=== PATIENT | male | born 1945 | race Caucasian/White ===

== ENCOUNTER → 2017-08-23 | Outpatient (CLI) | payer MEDICARE ==
[~2017-08-23] MED LIST: LIDOCAINE WITH 8.4% SOD BICARB 3 ML DISP.SYRIN.; MIDAZOLAM HCL/PF 5 MG/5 ML VIAL.; fentaNYL PF VIAL 100 MCG/2 ML VIAL
[2017-08-23 08:17] LABS: BASO % 1 % (0-3); EOS % 0 % (0-3); HEMATOCRIT 36.4 % (39.0-53.0); HEMOGLOBIN 11.3 g/dL (13.0-17.5); LYMPH # 1.1 x10^3/uL (1.0-4.8); LYMPH % 62 % (24-48); MEAN CORPUSCULAR HEMOGLOBIN 29 pg (25-35); MEAN CORPUSCULAR HGB CONC 31 g/dL (31-37); MEAN CORPUSCULAR VOLUME 93 fL (79-100); MONO # 0.2 x10^3/uL (0.0-1.1); MONO % 10 % (0-9); NEUT # 0.5 x10^3uL (1.8-7.7); NEUT % 27 % (31-73); RED BLOOD COUNT 3.94 x10^6/uL (4.30-5.70); RED CELL DISTRIBUTION WIDTH 17.6 % (11.5-14.5)
[2017-08-23 08:26] LABS: ADD MAN DIFF? YES; PLATELET COUNT 19 x10^3/uL (140-400); WHITE BLOOD COUNT 1.8 x10^3/uL (4.0-11.0)
[2017-08-23 08:29] LABS: INR 1.2 (0.8-1.1); PARTIAL THROMBOPLASTIN TIME 32 SEC (24-38); PROTHROMBIN TIME PATIENT 14.2 SEC (11.7-14.0)
[2017-08-23] MEDS: fentaNYL PF VIAL 100 MCG/2 ML VIAL IV (10:11)
[2017-08-23] MEDS: LIDOCAINE WITH 8.4% SOD BICARB 3 ML DISP.SYRIN. IJ (10:11)
[2017-08-23] MEDS: MIDAZOLAM HCL/PF 5 MG/5 ML VIAL. IV (10:11)
[2017-08-23 12:27] LABS: % LYMPHS 69 % (24-48); % MONOS 5 % (0-10); % SEGS 26 % (35-66); ANISOCYTOSIS SLIGHT; PLT ESTIMATE DECREASED (ADEQUATE)
[2017-08-23 12:28] LABS: HYPOCHROMIA SLIGHT; STOMATOCYTES OCC
[2017-08-23 12:29] LABS: OVALOCYTES OCC
== END | disposition home or self-care (01) ==
LOC: US 06:38
DX: C92.00 Acute myeloblastic leukemia, not having achieved remission (principal); D61.818 Other pancytopenia; D69.6 Thrombocytopenia, unspecified; M19.90 Unspecified osteoarthritis, unspecified site; Z79.2 Long term (current) use of antibiotics; Z79.899 Other long term (current) drug therapy; Z90.49 Acquired absence of other specified parts of digestive tract; Z87.442 Personal history of urinary calculi; F17.200 Nicotine dependence, unspecified, uncomplicated
CPT/HCPCS: 36415; 38222; 76700; 77012; 85007; 85025; 85610; 85730; 88184; 88185; 88237; 88305; 88311; 88313; 88341; 88342; 99152; J2250; J3010

== ENCOUNTER → 2018-01-03 | Outpatient (CLI) | payer MEDICARE, OTHER ==
[2018-01-03 12:26] LABS: MEAN CORPUSCULAR HEMOGLOBIN 37 pg (25-35); MEAN CORPUSCULAR HGB CONC 36 g/dL (31-37); MEAN CORPUSCULAR VOLUME 104 fL (79-100); RED BLOOD COUNT 1.77 x10^6/uL (4.30-5.70); RED CELL DISTRIBUTION WIDTH 19.1 % (11.5-14.5)
[2018-01-03 12:31] LABS: HEMATOCRIT 18.3 % (39.0-53.0); HEMOGLOBIN 6.6 g/dL (13.0-17.5); PLATELET COUNT 10 x10^3/uL (140-400); WHITE BLOOD COUNT 1.7 x10^3/uL (4.0-11.0)
== END | disposition home or self-care (01) ==
LOC: LAB 11:23
DX: C92.00 Acute myeloblastic leukemia, not having achieved remission (principal)
CPT/HCPCS: 36415; 85027; 86850; 86900; 86901; 86920

== ENCOUNTER 2018-01-16 06:58 | Outpatient (CLI) | payer MEDICARE, OTHER ==
[2018-01-16] MEDS ORDERED: FLUMAZENIL 0.5 MG/5 ML VIAL. IV (07:39)
[2018-01-16] MEDS ORDERED: NALOXONE 0.4 MG/ML VIAL. (07:39)
[2018-01-16 07:42] LABS: ADD MAN DIFF? NO
[2018-01-16] MEDS: MIDAZOLAM HCL/PF 2 MG/2 ML VIAL. IV (07:45)
[2018-01-16] MEDS: fentaNYL PF VIAL 100 MCG/2 ML VIAL IV (07:45)
[2018-01-16] MEDS: LIDOCAINE WITH 8.4% SOD BICARB 3 ML DISP.SYRIN. IJ (07:45)
[2018-01-16 07:49] LABS: BASO % 1 % (0-3); EOS % 0 % (0-3); HEMATOCRIT 25.1 % (39.0-53.0); HEMOGLOBIN 8.8 g/dL (13.0-17.5); LYMPH # 1.2 x10^3/uL (1.0-4.8); LYMPH % 67 % (24-48); MEAN CORPUSCULAR HEMOGLOBIN 33 pg (25-35); MEAN CORPUSCULAR HGB CONC 35 g/dL (31-37); MEAN CORPUSCULAR VOLUME 95 fL (79-100); MONO % 2 % (0-9); NEUT # 0.5 x10^3uL (1.8-7.7); NEUT % 30 % (31-73); RED BLOOD COUNT 2.64 x10^6/uL (4.30-5.70); RED CELL DISTRIBUTION WIDTH 21.4 % (11.5-14.5)
[2018-01-16 07:57] LABS: WHITE BLOOD COUNT 1.8 x10^3/uL (4.0-11.0)
[2018-01-16 08:02] LABS: PLATELET COUNT 22 x10^3/uL (140-400)
[2018-01-16] MEDS ORDERED: LIDOCAINE WITH 8.4% SOD BICARB 3 ML DISP.SYRIN. (08:10)
[2018-01-16 08:12] LABS: INR 1.2 (0.8-1.1); PROTHROMBIN TIME PATIENT 14.2 SEC (11.7-14.0)
== END 2018-01-16 09:56 | disposition home or self-care (01) ==
LOC: INTRAD 06:58
DX: C92.00 Acute myeloblastic leukemia, not having achieved remission (principal); D69.6 Thrombocytopenia, unspecified; Z79.01 Long term (current) use of anticoagulants; Z88.1 Allergy status to other antibiotic agents; Z98.42 Cataract extraction status, left eye; Z98.41 Cataract extraction status, right eye; Z96.1 Presence of intraocular lens; Z90.49 Acquired absence of other specified parts of digestive tract; Z87.442 Personal history of urinary calculi; M19.90 Unspecified osteoarthritis, unspecified site; F17.200 Nicotine dependence, unspecified, uncomplicated; Z98.890 Other specified postprocedural states; Z79.899 Other long term (current) drug therapy
CPT/HCPCS: 36415; 38222; 77012; 85025; 85610; 88184; 88185; 88237

== ENCOUNTER → 2018-02-14 | Outpatient (CLI) | payer MEDICARE, OTHER ==
[2018-02-07 14:16] VITALS: BP 114/57
[~2018-02-14] MED LIST changes: +DOXY100T9 PO; +DRON2.5C PO; +ERYT1OIN6 EACHEYE; +FLUT1DIS5 IH; +FURO-69 PO; +GABA600T2 PO; +GUAI600T47 PO; +ISOS30TA4 PO; -LIDOCAINE WITH 8.4% SOD BICARB 3 ML DISP.SYRIN.; -MIDAZOLAM HCL/PF 5 MG/5 ML VIAL.; -fentaNYL PF VIAL 100 MCG/2 ML VIAL
== END | disposition home or self-care (01) ==
LOC: LAB 12:34
PROVIDERS: ATTEND Internal Medicine Hematology & Oncology
DX: C92.00 Acute myeloblastic leukemia, not having achieved remission (principal); Z87.442 Personal history of urinary calculi; Z87.891 Personal history of nicotine dependence; Z90.49 Acquired absence of other specified parts of digestive tract; Z88.1 Allergy status to other antibiotic agents
CPT/HCPCS: 36415; 85049

== ENCOUNTER 2018-08-25 19:44 | Inpatient (IN) | payer MEDICARE, OTHER ==
[~2018-08-25] VITALS: Ht 177.8 cm; Wt 81.0 kg
[~2018-08-25 19:44] MED LIST changes: -GABA600T2 PO; +GABA600T7 PO
[2018-08-25] MEDS ORDERED: IV NORMAL SALINE 500ML BAG 500 ML IV ONE (20:00)
[2018-08-25 21:11] LABS: INFLUENZA A PATIENT NEGATIVE (NEGATIVE); INFLUENZA B PATIENT NEGATIVE (NEGATIVE)
[2018-08-25 21:18] LABS: BASO % 0 % (0-3); EOS % 0 % (0-3); HEMOGLOBIN 7.1 g/dL (13.0-17.5); LYMPH # 0.5 x10^3/uL (1.0-4.8); LYMPH % 25 % (24-48); MEAN CORPUSCULAR HEMOGLOBIN 29 pg (25-35); MEAN CORPUSCULAR HGB CONC 34 g/dL (31-37); MEAN CORPUSCULAR VOLUME 86 fL (79-100); MONO # 1.3 x10^3/uL (0.0-1.1); MONO % 60 % (0-9); NEUT # 0.3 x10^3uL (1.8-7.7); NEUT % 15 % (31-73); PLATELET COUNT 31 x10^3/uL (140-400); RED BLOOD COUNT 2.43 x10^6/uL (4.30-5.70); RED CELL DISTRIBUTION WIDTH 13.8 % (11.5-14.5); WHITE BLOOD COUNT 2.1 x10^3/uL (4.0-11.0)
[2018-08-25 21:23] LABS: HEMATOCRIT 20.8 % (39.0-53.0)
[2018-08-25 21:26] LABS: PROTHROMBIN TIME PATIENT 17.1 SEC (11.7-14.0)
[2018-08-25 21:36] LABS: CALCIUM 8.9 mg/dL (8.5-10.1); POTASSIUM 3.9 mmol/L (3.5-5.1)
[2018-08-25 21:51] LABS: ALBUMIN 3.3 g/dL (3.4-5.0); TOTAL BILIRUBIN 0.2 mg/dL (0.2-1.0); TOTAL PROTEIN 6.7 g/dL (6.4-8.2)
[2018-08-25 22:12] LABS: BILIRUBIN,URINE SMALL (NEG); CLARITY,URINE CLEAR; COLOR,URINE AMBER; NITRITE,URINE NEGATIVE (NEG); PH,URINE 5.5; PROTEIN,URINE NEGATIVE (NEG-TRACE)
[2018-08-25 22:17] LABS: HYALINE CASTS, URINE MANY /HPF
[2018-08-25 22:18] LABS: BACTERIA,URINE 0 /HPF (0-FEW); RBC,URINE OCC /HPF (0-2); WBC,URINE OCC /HPF (0-4)
[2018-08-25] MEDS ORDERED: VANCOMYCIN PER PHARMACY MC PRN (22:45)
[2018-08-25] MEDS ORDERED: VANCOMYCIN 2 GM in IV NORMAL SALINE 500ML BAG 500 ML IV ONE (23:00)
[2018-08-25] MEDS ORDERED: CEFEPIME HCL IV Push 2 GM VIAL. IVP ONE (23:00)
[2018-08-25] MEDS: IV NORMAL SALINE 1000ML BAG 1,000 ML IV SCH (23:13)
--- NOTE | 2018-08-25 23:51 | PHYS DOC ---
Past Medical History Past Medical History: Other Additional Past Medical Histor: LEUKEMIA Past Surgical History: Appendectomy Additional Past Surgical Histo: BONE MARROW BIOPSY Alcohol Use: None Drug Use: None Adult General Chief Complaint Chief Complaint: FEVER HPI HPI Patient is 72 yo male w/ hx of AML who presents with complaint of fever. Patient reports that for the past weak he felt extra tired. Today he began to feel weak and and chilled and decided to take his temperature at home, which measured at 101F. Patient then took two tylenol (around 1800) and came to ED. His last dose of chemotherapy was 2 months prior and is supposed to start a clinical trial tomorrow. He denies chest pain, shortness of breath, cough, palpitations, abdominal pain, diarrhea, dysuria. 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 Patient does have a port in place in R side of chest that is well taken care of. Of note he did receive a blood transfusion yesterday here at [facility]. Patient's oncologist is Neeta. Patient reports he did not receive a flu shot this year. He denies etoh or drug abuse but is a current smoker/tobacco chewer. Review of Systems Review of Systems Constitutional: Denies fever or chills [] Eyes: Denies change in visual acuity, redness, or eye pain [] HENT: Denies nasal congestion or sore throat [] Respiratory: Denies cough or shortness of breath [] Cardiovascular: No additional information not addressed in HPI [] GI: Denies abdominal pain, nausea, vomiting, bloody stools or diarrhea [] : Denies dysuria or hematuria [] Musculoskeletal: Denies back pain or joint pain [] Integument: Denies rash or skin lesions [] Neurologic: Denies headache, focal weakness or sensory changes [] Endocrine: Denies polyuria or polydipsia [] All other systems were reviewed and found to be within normal limits, except as documented in this note. Current Medications Current Medications Current Medications Medications (Trade) Dose Ordered Sig/Cr Start Time Stop Time Status Last Admin Dose Admin Sodium Chloride 500 ml @ 500 mls/hr 1X ONCE 08/25/18 20:00 08/25/18 20:59 DC 08/25/18 21:10 500 MLS/HR Vancomycin HCl (Vanco Per Pharmacy) 1 each PRN DAILY PRN 08/25/18 22:45 08/25/18 23:22 DC Allergies Allergies Allergies Coded Allergies Type Severity Reaction Last Updated Verified levofloxacin Allergy Intermediate Rash 08/25/18 Yes Physical Exam Physical Exam Constitutional: Well developed, well nourished, HENT: Normocephalic, atraumatic Eyes: PERRLA, EOMI, conjunctiva normal, no discharge. [] Neck: Normal range of motion Cardiovascular:Heart rate regular rhythm, no murmur [] Lungs & Thorax: Bilateral breath sounds clear to auscultation [] Abdomen: Soft, no tenderness, no masses, no pulsatile masses. [] Skin: Warm, dry, no erythema, no rash. [] port looks good. Back: No tenderness. Extremities: purpura BL LE up to mid LE. Additional diffuse, dark discoloration across lower extremities. No sores/ulcers noted. Thickened nails. Neurologic: Alert and oriented X 3, normal motor function, normal sensory function, no focal deficits noted. [] Current Patient Data Vital Signs Vital Signs Date Time Temp Pulse Resp B/P (MAP) Pulse Ox O2 Delivery O2 Flow Rate FiO2 08/25/18 22:45 82 16 133/63 (86) 89 Room Air 08/25/18 19:49 100.2 100.2 Lab Values Laboratory Tests Test 08/25/18 20:25 08/25/18 20:54 08/25/18 22:00 Influenza Type A Antigen Negative (NEGATIVE) Influenza Type B Antigen Negative (NEGATIVE) White Blood Count 2.1 x10^3/uL (4.0-11.0) L Red Blood Count 2.43 x10^6/uL (4.30-5.70) L Hemoglobin 7.1 g/dL (13.0-17.5) L Hematocrit 20.8 % (39.0-53.0) *L Mean Corpuscular Volume 86 fL (79-100) Mean Corpuscular Hemoglobin 29 pg (25-35) Mean Corpuscular Hemoglobin Concent 34 g/dL (31-37) Red Cell Distribution Width 13.8 % (11.5-14.5) Platelet Count 31 x10^3/uL (140-400) #L Neutrophils (%) (Auto) 15 % (31-73) L Lymphocytes (%) (Auto) 25 % (24-48) Monocytes (%) (Auto) 60 % (0-9) H Eosinophils (%) (Auto) 0 % (0-3) Basophils (%) (Auto) 0 % (0-3) Neutrophils # (Auto) 0.3 x10^3uL (1.8-7.7) L Lymphocytes # (Auto) 0.5 x10^3/uL (1.0-4.8) L Monocytes # (Auto) 1.3 x10^3/uL (0.0-1.1) H Eosinophils # (Auto) 0.0 x10^3/uL (0.0-0.7) Basophils # (Auto) 0.0 x10^3/uL (0.0-0.2) Platelet Estimate Pending Prothrombin Time 17.1 SEC (11.7-14.0) H Prothrombin Time INR 1.4 (0.8-1.1) H Sodium Level 141 mmol/L (136-145) Potassium Level 3.9 mmol/L (3.5-5.1) Chloride Level 104 mmol/L (98-107) Carbon Dioxide Level 28 mmol/L (21-32) Anion Gap 9 (6-14) Blood Urea Nitrogen 21 mg/dL (8-26) Creatinine 1.0 mg/dL (0.7-1.3) Estimated GFR (Cockcroft-Gault) 73.0 BUN/Creatinine Ratio 21 (6-20) H Glucose Level 137 mg/dL (70-99) H Lactic Acid Level 1.1 mmol/L (0.4-2.0) Calcium Level 8.9 mg/dL (8.5-10.1) Total Bilirubin 0.2 mg/dL (0.2-1.0) Aspartate Amino Transferase (AST) 38 U/L (15-37) H Alanine Aminotransferase (ALT) 82 U/L (16-63) H Alkaline Phosphatase 101 U/L (46-116) Troponin I Quantitative < 0.017 ng/mL (0.000-0.055) Total Protein 6.7 g/dL (6.4-8.2) Albumin 3.3 g/dL (3.4-5.0) L Albumin/Globulin Ratio 1.0 (1.0-1.7) Procalcitonin < 0.10 ng/mL (0.00-0.10) Urine Collection Type Unknown Urine Color Lorna Urine Clarity Clear Urine pH 5.5 Urine Specific [place] >=1.030 Urine Protein Negative mg/dL (NEG-TRACE) Urine Glucose (UA) Negative mg/dL (NEG) Urine Ketones (Stick) Trace mg/dL (NEG) Urine Blood Negative (NEG) Urine Nitrite Negative (NEG) Urine Bilirubin Small (NEG) Urine Urobilinogen Dipstick 1.0 mg/dL (0.2 mg/dL) Urine Leukocyte Esterase Negative (NEG) Urine RBC Occ /HPF (0-2) Urine WBC Occ /HPF (0-4) Urine Bacteria 0 /HPF (0-FEW) Urine Hyaline Casts Many /HPF Urine Mucus Marked /LPF Laboratory Tests 08/25/18 20:54 Laboratory Tests 08/25/18 20:54 EKG EKG [] Radiology/Procedures Radiology/Procedures [ED Preliminary read CXR: No acute cardiopulmonary process noted final read pending Course & Med Decision Making Course & Med Decision Making Patient is a 72 yo male w/ hx AML w/ last chemo treatment 2 months prior who presents with complaint of fever. Patient reports he decided to check temperature after feeling weak and chilled today. He reports his fever was 101F at home, where he took 2 tylenol and presented to ED. On physical exam his temperature is 100.2. BL LE have purpura and significant dark discoloration. Remainder of physical exam unremarkable. Labs reveal ANC 300, platelets 31, hgb 7.1. CXR unremarkable for consolidation. Patient treated with vanc and cefepime for neutropenic fever. Patient admitted to [facility] (hospitalist) for further evaluation. Discussed plan with patient and family, who voiced understanding and agreement. Patient has neutropenia fever of 101 at home I spoke with Dr. angelo who agrees with cefepime 2 g every 8. Could give Vanco if any skin findings. Given the lower extremity findings I did order some Vanco. Patient does appear hemodynamically stable in the emergency room admitted to the hospitalist service for further eval Dragon Disclaimer Dragon Disclaimer This electronic medical record was generated, in whole or in part, using a voice recognition dictation system. Departure Departure Impression: Primary Impression: Neutropenic fever Disposition: ADMITTED INPATIENT Admitting Physician: Other Condition: STABLE Referrals: SHANNON POE MD (PCP) SHAHEED HILLS MD Aug 25, 2018 23:51
[2018-08-26] VITALS (15 sets, daily range): BP systolic 92–143; BP diastolic 47–62
--- NOTE | 2018-08-26 00:47 | PDOC1 ---
History and Physical Date of Admission Date of Admission 08/25/2018 Identification/Chief Complaint Chief Complaint my daughters brought me Source Source: Patient History of Present Illness History of Present Illness Patient is a 72-year-old gentleman with a diagnosis of AML who has received treatments in the past, but he has not had any treatment in a while as per the patient. He comes today brought by his daughters were concerned that his temperature was hydrated was 101 Fahrenheit at home. The patient denies sick contacts seems to have generalized malaise decided to fever and chills sensation of not feeling well. Patient the time my evaluation is in no apparent distress. He has a very flat affect and does not seem to be a good historian. Patient has felt short of breath but he denies chest pain or palpitations no nausea vomiting or diarrhea has been reported. The patient denies any headache or alarming signs or the headache. No peripheral edema has been noted. We have been asked to admit the patient for antibiotic therapy and control of his fever as well ER course: Patient is 72 yo male w/ hx of AML who presents with complaint of fever. Patient reports that for the past weak he felt extra tired. Today he began to feel weak and and chilled and decided to take his temperature at home, which measured at 101F. Patient then took two tylenol (around 1800) and came to ED. His last dose of chemotherapy was 2 months prior and is supposed to start a clinical trial tomorrow. He denies chest pain, shortness of breath, cough, palpitations, abdominal pain, diarrhea, dysuria. 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 Patient does have a port in place in R side of chest that is well taken care of. Of note he did receive a blood transfusion yesterday here at [facility]. Patient's oncologist is Neeta. Patient reports he did not receive a flu shot this year. He denies etoh or drug abuse but is a current smoker/tobacco chewer. Family History Family History: Other (negative found noncontributory to the present) Current Medications Current Medications Current Medications Medications (Trade) Dose Ordered Sig/Cr Start Time Stop Time Status Last Admin Dose Admin Acetaminophen (Tylenol) 650 mg PRN Q6HRS PRN 08/25/18 23:00 Albuterol Sulfate (Ventolin Neb Soln) 2.5 mg RTQID 08/26/18 08:00 Budesonide (Pulmicort) 0.5 mg RTBID 08/26/18 08:00 Cefepime HCl (Maxipime) 2 gm ONCE ONCE 08/25/18 23:00 08/25/18 23:01 DC 08/25/18 23:07 2 GM Dronabinol (Marinol) 2.5 mg DAILY 08/26/18 09:00 Furosemide (Lasix) 20 mg DAILY 08/26/18 09:00 Gabapentin (Neurontin) 600 mg TID 08/26/18 09:00 Guaifenesin (Mucinex) 600 mg BID 08/26/18 09:00 Isosorbide Mononitrate (Imdur) 15 mg DAILY 08/26/18 09:00 Non-Formulary Medication (Fluticasone/ Salmeterol (Advair 500-50 Diskus)) 1 puff BID 08/26/18 09:00 UNV Sodium Chloride 1,000 ml @ 125 mls/hr Q8H 08/25/18 23:00 08/26/18 22:59 08/25/18 23:13 125 MLS/HR Vancomycin HCl (Vanco Per Pharmacy) 1 each PRN DAILY PRN 08/25/18 22:45 08/25/18 23:22 DC Vancomycin HCl 2 gm/Sodium Chloride 500 ml @ 250 mls/hr 1X ONCE 08/25/18 23:00 08/26/18 00:59 08/25/18 23:00 250 MLS/HR Allergies Allergies Allergies Coded Allergies Type Severity Reaction Last Updated Verified levofloxacin Allergy Intermediate Rash 08/25/18 Yes ROS Review of System CONSTITUTIONAL: No fever or chills EYES: No recent changes SKIN: No rash or itching CARDIOVASCULAR: No chest pain, syncope, palpitations, or edema RESPIRATORY: No SOB or cough GASTROINTESTINAL: No nausea, vomiting or abdominal pain NEUROLOGICAL: No headaches or weakness ENDOCRINE: No cold or heat intolerance GENITOURINARY: No urgency or frequency of urination MUSCULOSKELETAL: No back pain or joint pain LYMPHATICS: No enlarged lymph nodes PSYCHIATRIC: No anxiety or depression Physical Exam Physical Exam GEN.: No apparent distress. Alert and oriented. HEENT: Head is normocephalic, atraumatic NECK: Supple. LUNGS: Clear to auscultation. HEART: RRR, S1, S2 present. Peripheral pulses intact ABDOMEN: Soft, nontender. Positive bowel sounds. EXTREMITIES: Without any cyanosis. NEUROLOGIC: Normal speech, normal tone PSYCHIATRIC: Normal affect, normal mood. SKIN: No ulcerations Vitals Vitals Vital Signs Date Time Temp Pulse Resp B/P (MAP) Pulse Ox O2 Delivery O2 Flow Rate FiO2 08/26/18 00:27 98.9 83 16 124/60 (81) 92 Room Air 98.9 Labs Labs Laboratory Tests Test 08/25/18 20:25 08/25/18 20:54 08/25/18 22:00 Influenza Type A Antigen Negative (NEGATIVE) Influenza Type B Antigen Negative (NEGATIVE) White Blood Count 2.1 x10^3/uL (4.0-11.0) Red Blood Count 2.43 x10^6/uL (4.30-5.70) Hemoglobin 7.1 g/dL (13.0-17.5) Hematocrit 20.8 % (39.0-53.0) Mean Corpuscular Volume 86 fL (79-100) Mean Corpuscular Hemoglobin 29 pg (25-35) Mean Corpuscular Hemoglobin Concent 34 g/dL (31-37) Red Cell Distribution Width 13.8 % (11.5-14.5) Platelet Count 31 x10^3/uL (140-400) Neutrophils (%) (Auto) 15 % (31-73) Lymphocytes (%) (Auto) 25 % (24-48) Monocytes (%) (Auto) 60 % (0-9) Eosinophils (%) (Auto) 0 % (0-3) Basophils (%) (Auto) 0 % (0-3) Neutrophils # (Auto) 0.3 x10^3uL (1.8-7.7) Lymphocytes # (Auto) 0.5 x10^3/uL (1.0-4.8) Monocytes # (Auto) 1.3 x10^3/uL (0.0-1.1) Eosinophils # (Auto) 0.0 x10^3/uL (0.0-0.7) Basophils # (Auto) 0.0 x10^3/uL (0.0-0.2) Prothrombin Time 17.1 SEC (11.7-14.0) Prothromb Time International Ratio 1.4 (0.8-1.1) Sodium Level 141 mmol/L (136-145) Potassium Level 3.9 mmol/L (3.5-5.1) Chloride Level 104 mmol/L (98-107) Carbon Dioxide Level 28 mmol/L (21-32) Anion Gap 9 (6-14) Blood Urea Nitrogen 21 mg/dL (8-26) Creatinine 1.0 mg/dL (0.7-1.3) Estimated GFR (Cockcroft-Gault) 73.0 BUN/Creatinine Ratio 21 (6-20) Glucose Level 137 mg/dL (70-99) Lactic Acid Level 1.1 mmol/L (0.4-2.0) Calcium Level 8.9 mg/dL (8.5-10.1) Total Bilirubin 0.2 mg/dL (0.2-1.0) Aspartate Amino Transf (AST/SGOT) 38 U/L (15-37) Alanine Aminotransferase (ALT/SGPT) 82 U/L (16-63) Alkaline Phosphatase 101 U/L (46-116) Troponin I Quantitative < 0.017 ng/mL (0.000-0.055) Total Protein 6.7 g/dL (6.4-8.2) Albumin 3.3 g/dL (3.4-5.0) Albumin/Globulin Ratio 1.0 (1.0-1.7) Procalcitonin < 0.10 ng/mL (0.00-0.10) Urine Collection Type Unknown Urine Color Lorna Urine Clarity Clear Urine pH 5.5 Urine Specific [place] >=1.030 Urine Protein Negative mg/dL (NEG-TRACE) Urine Glucose (UA) Negative mg/dL (NEG) Urine Ketones (Stick) Trace mg/dL (NEG) Urine Blood Negative (NEG) Urine Nitrite Negative (NEG) Urine Bilirubin Small (NEG) Urine Urobilinogen Dipstick 1.0 mg/dL (0.2 mg/dL) Urine Leukocyte Esterase Negative (NEG) Urine RBC Occ /HPF (0-2) Urine WBC Occ /HPF (0-4) Urine Bacteria 0 /HPF (0-FEW) Urine Hyaline Casts Many /HPF Urine Mucus Marked /LPF Laboratory Tests Test 08/25/18 20:25 08/25/18 20:54 3/8/19 22:00 Influenza Type A Antigen Negative (NEGATIVE) Influenza Type B Antigen Negative (NEGATIVE) White Blood Count 2.1 x10^3/uL (4.0-11.0) Red Blood Count 2.43 x10^6/uL (4.30-5.70) Hemoglobin 7.1 g/dL (13.0-17.5) Hematocrit 20.8 % (39.0-53.0) Mean Corpuscular Volume 86 fL (79-100) Mean Corpuscular Hemoglobin 29 pg (25-35) Mean Corpuscular Hemoglobin Concent 34 g/dL (31-37) Red Cell Distribution Width 13.8 % (11.5-14.5) Platelet Count 31 x10^3/uL (140-400) Neutrophils (%) (Auto) 15 % (31-73) Lymphocytes (%) (Auto) 25 % (24-48) Monocytes (%) (Auto) 60 % (0-9) Eosinophils (%) (Auto) 0 % (0-3) Basophils (%) (Auto) 0 % (0-3) Neutrophils # (Auto) 0.3 x10^3uL (1.8-7.7) Lymphocytes # (Auto) 0.5 x10^3/uL (1.0-4.8) Monocytes # (Auto) 1.3 x10^3/uL (0.0-1.1) Eosinophils # (Auto) 0.0 x10^3/uL (0.0-0.7) Basophils # (Auto) 0.0 x10^3/uL (0.0-0.2) Prothrombin Time 17.1 SEC (11.7-14.0) Prothromb Time International Ratio 1.4 (0.8-1.1) Sodium Level 141 mmol/L (136-145) Potassium Level 3.9 mmol/L (3.5-5.1) Chloride Level 104 mmol/L (98-107) Carbon Dioxide Level 28 mmol/L (21-32) Anion Gap 9 (6-14) Blood Urea Nitrogen 21 mg/dL (8-26) Creatinine 1.0 mg/dL (0.7-1.3) Estimated GFR (Cockcroft-Gault) 73.0 BUN/Creatinine Ratio 21 (6-20) Glucose Level 137 mg/dL (70-99) Lactic Acid Level 1.1 mmol/L (0.4-2.0) Calcium Level 8.9 mg/dL (8.5-10.1) Total Bilirubin 0.2 mg/dL (0.2-1.0) Aspartate Amino Transf (AST/SGOT) 38 U/L (15-37) Alanine Aminotransferase (ALT/SGPT) 82 U/L (16-63) Alkaline Phosphatase 101 U/L (46-116) Troponin I Quantitative < 0.017 ng/mL (0.000-0.055) Total Protein 6.7 g/dL (6.4-8.2) Albumin 3.3 g/dL (3.4-5.0) Albumin/Globulin Ratio 1.0 (1.0-1.7) Procalcitonin < 0.10 ng/mL (0.00-0.10) Urine Collection Type Unknown Urine Color Lorna Urine Clarity Clear Urine pH 5.5 Urine Specific [place] >=1.030 Urine Protein Negative mg/dL (NEG-TRACE) Urine Glucose (UA) Negative mg/dL (NEG) Urine Ketones (Stick) Trace mg/dL (NEG) Urine Blood Negative (NEG) Urine Nitrite Negative (NEG) Urine Bilirubin Small (NEG) Urine Urobilinogen Dipstick 1.0 mg/dL (0.2 mg/dL) Urine Leukocyte Esterase Negative (NEG) Urine RBC Occ /HPF (0-2) Urine WBC Occ /HPF (0-4) Urine Bacteria 0 /HPF (0-FEW) Urine Hyaline Casts Many /HPF Urine Mucus Marked /LPF VTE Prophylaxis Ordered VTE Prophylaxis Devices: Yes VTE Pharmacological Prophylaxi: Yes SANKET MENDEZ MD Aug 26, 2018 00:47
[2018-08-26] MEDS ORDERED: diphenhydrAMINE HCL 25 MG CAPSULE PO PRN (01:15)
--- NOTE | 2018-08-26 01:29 | RAD ---
Single view chest dated 08/25/2018. No comparison available. Clinical data indication: Fever. FINDINGS: Single upright portable exam performed. Heart and mediastinal contours are within normal levels. Right-sided port in place. Lung volumes are low, limiting evaluation. There is some prominent perihilar linear markings. No consolidation or pleural effusion. No pneumothorax. IMPRESSION: 1. No evidence of focal pneumonia. 2. Prominent perihilar linear markings could be related to acute or chronic bronchial inflammatory process or atelectasis. Electronically signed by: Gokul Mondragon MD (08/26/2018 1:26 AM) [facility]
[2018-08-26] MEDS: diphenhydrAMINE HCL 25 MG CAPSULE PO PRN (01:44)
[2018-08-26] MEDS: CEFEPIME HCL IV Push 2 GM VIAL. IVP SCH ×3 (06:25→21:35)
[2018-08-26] MEDS: IV NORMAL SALINE 1000ML BAG 1,000 ML IV SCH ×2 (06:26→15:00)
[2018-08-26] MEDS: ALBUTEROL SULFATE 2.5 MG/3 ML NEBU. NEB SCH ×4 (07:13→19:57)
[2018-08-26] MEDS: BUDESONIDE 0.5 MG/2 ML NEBU. NEB SCH ×2 (07:14→19:57)
[2018-08-26] MEDS ORDERED: NON FORMULARY ITEM (Fluticasone/Salmeterol (Advair 500-50 Diskus) 1 PUFF) IH SCH (09:00)
[2018-08-26] MEDS: FUROSEMIDE 20 MG TABLET PO SCH (09:09)
[2018-08-26] MEDS: DRONABINOL 2.5 MG CAPSULE. PO SCH (09:10)
[2018-08-26] MEDS: GABAPENTIN 300 MG CAPSULE. PO SCH ×3 (09:10→21:23)
[2018-08-26] MEDS: ISOSORBIDE MONONITRATE ER 30 MG TAB.ER.24H PO SCH (09:10)
[2018-08-26 09:53] LABS: BASO % 0 % (0-3); EOS % 1 % (0-3); LYMPH # 0.5 x10^3/uL (1.0-4.8); LYMPH % 35 % (24-48); MEAN CORPUSCULAR HEMOGLOBIN 29 pg (25-35); MEAN CORPUSCULAR HGB CONC 34 g/dL (31-37); MEAN CORPUSCULAR VOLUME 86 fL (79-100); MONO # 0.7 x10^3/uL (0.0-1.1); MONO % 52 % (0-9); NEUT # 0.2 x10^3uL (1.8-7.7); NEUT % 12 % (31-73); RED BLOOD COUNT 2.32 x10^6/uL (4.30-5.70); RED CELL DISTRIBUTION WIDTH 13.6 % (11.5-14.5)
[2018-08-26 09:59] LABS: WHITE BLOOD COUNT 1.4 x10^3/uL (4.0-11.0)
[2018-08-26 10:00] LABS: HEMOGLOBIN 6.8 g/dL (13.0-17.5); PLATELET COUNT 19 x10^3/uL (140-400)
--- NOTE | 2018-08-26 10:00 | NUR ---
Spoke with slab grinder regarding blast cells >[address] Joseph, she stated she is aware of this and pt is awaiting treatment.
[2018-08-26 10:02] LABS: CALCIUM 8.4 mg/dL (8.5-10.1); CREATININE 0.7 mg/dL (0.7-1.3); GFR 110.2; POTASSIUM 3.8 mmol/L (3.5-5.1)
--- NOTE | 2018-08-26 11:00 | NUR ---
Spoke with Lizzie in [place], who stated that the patient had one set of blood cultures, drawn in the ED from his port. This RN notified them that Dr. Joseph wants a second set of blood cultures drawn peripherally. Will continue to monitor.
--- NOTE | 2018-08-26 12:08 | PDOC ---
PROGRESS NOTES Chief Complaint Chief Complaint Neutropenic fever Normocytic anemia most likely related to underlying malignant process Thrombocytopenia History of AML History of Raynauds Depression? Plan: home medications neutropenic precautions Follow Blood cultures 2 Cefepime 2 g every 8 hours further recommendations based on clinical course will wait for recommendations from design consultant regarding transfusion patient may need mood stabilizer, will continue to monitor his mood. DVT prophylaxis with SCD and teds in light of his thrombocytopenia Vitals Vitals Vital Signs Date Time Temp Pulse Resp B/P (MAP) Pulse Ox O2 Delivery O2 Flow Rate FiO2 08/26/18 11:04 94 Room Air 08/26/18 11:00 98.5 84 18 114/56 (75) 98.5 Physical Exam General: Alert, Oriented X3, Cooperative Heart: Regular rate, Normal S1, Normal S2 Lungs: Clear Abdomen: Normal bowel sounds, Soft, No tenderness Extremities: No clubbing, No cyanosis Skin: No rashes Labs LABS Laboratory Tests Test 08/25/18 20:25 08/25/18 20:54 08/25/18 22:00 08/26/18 08:52 Influenza Type A Antigen Negative (NEGATIVE) Influenza Type B Antigen Negative (NEGATIVE) White Blood Count 2.1 x10^3/uL (4.0-11.0) 1.4 x10^3/uL (4.0-11.0) Red Blood Count 2.43 x10^6/uL (4.30-5.70) 2.32 x10^6/uL (4.30-5.70) Hemoglobin 7.1 g/dL (13.0-17.5) 6.8 g/dL (13.0-17.5) Hematocrit 20.8 % (39.0-53.0) 20.0 % (39.0-53.0) Mean Corpuscular Volume 86 fL (79-100) 86 fL (79-100) Mean Corpuscular Hemoglobin 29 pg (25-35) 29 pg (25-35) Mean Corpuscular Hemoglobin Concent 34 g/dL (31-37) 34 g/dL (31-37) Red Cell Distribution Width 13.8 % (11.5-14.5) 13.6 % (11.5-14.5) Platelet Count 31 x10^3/uL (140-400) 19 x10^3/uL (140-400) Neutrophils (%) (Auto) 15 % (31-73) 12 % (31-73) Lymphocytes (%) (Auto) 25 % (24-48) 35 % (24-48) Monocytes (%) (Auto) 60 % (0-9) 52 % (0-9) Eosinophils (%) (Auto) 0 % (0-3) 1 % (0-3) Basophils (%) (Auto) 0 % (0-3) 0 % (0-3) Neutrophils # (Auto) 0.3 x10^3uL (1.8-7.7) 0.2 x10^3uL (1.8-7.7) Lymphocytes # (Auto) 0.5 x10^3/uL (1.0-4.8) 0.5 x10^3/uL (1.0-4.8) Monocytes # (Auto) 1.3 x10^3/uL (0.0-1.1) 0.7 x10^3/uL (0.0-1.1) Eosinophils # (Auto) 0.0 x10^3/uL (0.0-0.7) 0.0 x10^3/uL (0.0-0.7) Basophils # (Auto) 0.0 x10^3/uL (0.0-0.2) 0.0 x10^3/uL (0.0-0.2) Prothrombin Time 17.1 SEC (11.7-14.0) Prothromb Time International Ratio 1.4 (0.8-1.1) Sodium Level 141 mmol/L (136-145) 144 mmol/L (136-145) Potassium Level 3.9 mmol/L (3.5-5.1) 3.8 mmol/L (3.5-5.1) Chloride Level 104 mmol/L (98-107) 106 mmol/L (98-107) Carbon Dioxide Level 28 mmol/L (21-32) 28 mmol/L (21-32) Anion Gap 9 (6-14) 10 (6-14) Blood Urea Nitrogen 21 mg/dL (8-26) 18 mg/dL (8-26) Creatinine 1.0 mg/dL (0.7-1.3) 0.7 mg/dL (0.7-1.3) Estimated GFR (Cockcroft-Gault) 73.0 110.2 BUN/Creatinine Ratio 21 (6-20) Glucose Level 137 mg/dL (70-99) 179 mg/dL (70-99) Lactic Acid Level 1.1 mmol/L (0.4-2.0) Calcium Level 8.9 mg/dL (8.5-10.1) 8.4 mg/dL (8.5-10.1) Total Bilirubin 0.2 mg/dL (0.2-1.0) Aspartate Amino Transf (AST/SGOT) 38 U/L (15-37) Alanine Aminotransferase (ALT/SGPT) 82 U/L (16-63) Alkaline Phosphatase 101 U/L (46-116) Troponin I Quantitative < 0.017 ng/mL (0.000-0.055) Total Protein 6.7 g/dL (6.4-8.2) Albumin 3.3 g/dL (3.4-5.0) Albumin/Globulin Ratio 1.0 (1.0-1.7) Procalcitonin < 0.10 ng/mL (0.00-0.10) Urine Collection Type Unknown Urine Color Lorna Urine Clarity Clear Urine pH 5.5 Urine Specific [place] >=1.030 Urine Protein Negative mg/dL (NEG-TRACE) Urine Glucose (UA) Negative mg/dL (NEG) Urine Ketones (Stick) Trace mg/dL (NEG) Urine Blood Negative (NEG) Urine Nitrite Negative (NEG) Urine Bilirubin Small (NEG) Urine Urobilinogen Dipstick 1.0 mg/dL (0.2 mg/dL) Urine Leukocyte Esterase Negative (NEG) Urine RBC Occ /HPF (0-2) Urine WBC Occ /HPF (0-4) Urine Bacteria 0 /HPF (0-FEW) Urine Hyaline Casts Many /HPF Urine Mucus Marked /LPF Comment Review of Relevant I have reviewed the following items kirsten (where applicable) has been applied. Labs Laboratory Tests Test 08/25/18 20:25 08/25/18 20:54 08/25/18 22:00 08/26/18 08:52 Influenza Type A Antigen Negative (NEGATIVE) Influenza Type B Antigen Negative (NEGATIVE) White Blood Count 2.1 x10^3/uL (4.0-11.0) 1.4 x10^3/uL (4.0-11.0) Red Blood Count 2.43 x10^6/uL (4.30-5.70) 2.32 x10^6/uL (4.30-5.70) Hemoglobin 7.1 g/dL (13.0-17.5) 6.8 g/dL (13.0-17.5) Hematocrit 20.8 % (39.0-53.0) 20.0 % (39.0-53.0) Mean Corpuscular Volume 86 fL (79-100) 86 fL (79-100) Mean Corpuscular Hemoglobin 29 pg (25-35) 29 pg (25-35) Mean Corpuscular Hemoglobin Concent 34 g/dL (31-37) 34 g/dL (31-37) Red Cell Distribution Width 13.8 % (11.5-14.5) 13.6 % (11.5-14.5) Platelet Count 31 x10^3/uL (140-400) 19 x10^3/uL (140-400) Neutrophils (%) (Auto) 15 % (31-73) 12 % (31-73) Lymphocytes (%) (Auto) 25 % (24-48) 35 % (24-48) Monocytes (%) (Auto) 60 % (0-9) 52 % (0-9) Eosinophils (%) (Auto) 0 % (0-3) 1 % (0-3) Basophils (%) (Auto) 0 % (0-3) 0 % (0-3) Neutrophils # (Auto) 0.3 x10^3uL (1.8-7.7) 0.2 x10^3uL (1.8-7.7) Lymphocytes # (Auto) 0.5 x10^3/uL (1.0-4.8) 0.5 x10^3/uL (1.0-4.8) Monocytes # (Auto) 1.3 x10^3/uL (0.0-1.1) 0.7 x10^3/uL (0.0-1.1) Eosinophils # (Auto) 0.0 x10^3/uL (0.0-0.7) 0.0 x10^3/uL (0.0-0.7) Basophils # (Auto) 0.0 x10^3/uL (0.0-0.2) 0.0 x10^3/uL (0.0-0.2) Prothrombin Time 17.1 SEC (11.7-14.0) Prothromb Time International Ratio 1.4 (0.8-1.1) Sodium Level 141 mmol/L (136-145) 144 mmol/L (136-145) Potassium Level 3.9 mmol/L (3.5-5.1) 3.8 mmol/L (3.5-5.1) Chloride Level 104 mmol/L (98-107) 106 mmol/L (98-107) Carbon Dioxide Level 28 mmol/L (21-32) 28 mmol/L (21-32) Anion Gap 9 (6-14) 10 (6-14) Blood Urea Nitrogen 21 mg/dL (8-26) 18 mg/dL (8-26) Creatinine 1.0 mg/dL (0.7-1.3) 0.7 mg/dL (0.7-1.3) Estimated GFR (Cockcroft-Gault) 73.0 110.2 BUN/Creatinine Ratio 21 (6-20) Glucose Level 137 mg/dL (70-99) 179 mg/dL (70-99) Lactic Acid Level 1.1 mmol/L (0.4-2.0) Calcium Level 8.9 mg/dL (8.5-10.1) 8.4 mg/dL (8.5-10.1) Total Bilirubin 0.2 mg/dL (0.2-1.0) Aspartate Amino Transf (AST/SGOT) 38 U/L (15-37) Alanine Aminotransferase (ALT/SGPT) 82 U/L (16-63) Alkaline Phosphatase 101 U/L (46-116) Troponin I Quantitative < 0.017 ng/mL (0.000-0.055) Total Protein 6.7 g/dL (6.4-8.2) Albumin 3.3 g/dL (3.4-5.0) Albumin/Globulin Ratio 1.0 (1.0-1.7) Procalcitonin < 0.10 ng/mL (0.00-0.10) Urine Collection Type Unknown Urine Color Lorna Urine Clarity Clear Urine pH 5.5 Urine Specific [place] >=1.030 Urine Protein Negative mg/dL (NEG-TRACE) Urine Glucose (UA) Negative mg/dL (NEG) Urine Ketones (Stick) Trace mg/dL (NEG) Urine Blood Negative (NEG) Urine Nitrite Negative (NEG) Urine Bilirubin Small (NEG) Urine Urobilinogen Dipstick 1.0 mg/dL (0.2 mg/dL) Urine Leukocyte Esterase Negative (NEG) Urine RBC Occ /HPF (0-2) Urine WBC Occ /HPF (0-4) Urine Bacteria 0 /HPF (0-FEW) Urine Hyaline Casts Many /HPF Urine Mucus Marked /LPF Laboratory Tests Test 08/25/18 20:25 08/25/18 20:54 08/25/18 22:00 08/26/18 08:52 Influenza Type A Antigen Negative (NEGATIVE) Influenza Type B Antigen Negative (NEGATIVE) White Blood Count 2.1 x10^3/uL (4.0-11.0) 1.4 x10^3/uL (4.0-11.0) Red Blood Count 2.43 x10^6/uL (4.30-5.70) 2.32 x10^6/uL (4.30-5.70) Hemoglobin 7.1 g/dL (13.0-17.5) 6.8 g/dL (13.0-17.5) Hematocrit 20.8 % (39.0-53.0) 20.0 % (39.0-53.0) Mean Corpuscular Volume 86 fL (79-100) 86 fL (79-100) Mean Corpuscular Hemoglobin 29 pg (25-35) 29 pg (25-35) Mean Corpuscular Hemoglobin Concent 34 g/dL (31-37) 34 g/dL (31-37) Red Cell Distribution Width 13.8 % (11.5-14.5) 13.6 % (11.5-14.5) Platelet Count 31 x10^3/uL (140-400) 19 x10^3/uL (140-400) Neutrophils (%) (Auto) 15 % (31-73) 12 % (31-73) Lymphocytes (%) (Auto) 25 % (24-48) 35 % (24-48) Monocytes (%) (Auto) 60 % (0-9) 52 % (0-9) Eosinophils (%) (Auto) 0 % (0-3) 1 % (0-3) Basophils (%) (Auto) 0 % (0-3) 0 % (0-3) Neutrophils # (Auto) 0.3 x10^3uL (1.8-7.7) 0.2 x10^3uL (1.8-7.7) Lymphocytes # (Auto) 0.5 x10^3/uL (1.0-4.8) 0.5 x10^3/uL (1.0-4.8) Monocytes # (Auto) 1.3 x10^3/uL (0.0-1.1) 0.7 x10^3/uL (0.0-1.1) Eosinophils # (Auto) 0.0 x10^3/uL (0.0-0.7) 0.0 x10^3/uL (0.0-0.7) Basophils # (Auto) 0.0 x10^3/uL (0.0-0.2) 0.0 x10^3/uL (0.0-0.2) Prothrombin Time 17.1 SEC (11.7-14.0) Prothromb Time International Ratio 1.4 (0.8-1.1) Sodium Level 141 mmol/L (136-145) 144 mmol/L (136-145) Potassium Level 3.9 mmol/L (3.5-5.1) 3.8 mmol/L (3.5-5.1) Chloride Level 104 mmol/L (98-107) 106 mmol/L (98-107) Carbon Dioxide Level 28 mmol/L (21-32) 28 mmol/L (21-32) Anion Gap 9 (6-14) 10 (6-14) Blood Urea Nitrogen 21 mg/dL (8-26) 18 mg/dL (8-26) Creatinine 1.0 mg/dL (0.7-1.3) 0.7 mg/dL (0.7-1.3) Estimated GFR (Cockcroft-Gault) 73.0 110.2 BUN/Creatinine Ratio 21 (6-20) Glucose Level 137 mg/dL (70-99) 179 mg/dL (70-99) Lactic Acid Level 1.1 mmol/L (0.4-2.0) Calcium Level 8.9 mg/dL (8.5-10.1) 8.4 mg/dL (8.5-10.1) Total Bilirubin 0.2 mg/dL (0.2-1.0) Aspartate Amino Transf (AST/SGOT) 38 U/L (15-37) Alanine Aminotransferase (ALT/SGPT) 82 U/L (16-63) Alkaline Phosphatase 101 U/L (46-116) Troponin I Quantitative < 0.017 ng/mL (0.000-0.055) Total Protein 6.7 g/dL (6.4-8.2) Albumin 3.3 g/dL (3.4-5.0) Albumin/Globulin Ratio 1.0 (1.0-1.7) Procalcitonin < 0.10 ng/mL (0.00-0.10) Urine Collection Type Unknown Urine Color Lorna Urine Clarity Clear Urine pH 5.5 Urine Specific [place] >=1.030 Urine Protein Negative mg/dL (NEG-TRACE) Urine Glucose (UA) Negative mg/dL (NEG) Urine Ketones (Stick) Trace mg/dL (NEG) Urine Blood Negative (NEG) Urine Nitrite Negative (NEG) Urine Bilirubin Small (NEG) Urine Urobilinogen Dipstick 1.0 mg/dL (0.2 mg/dL) Urine Leukocyte Esterase Negative (NEG) Urine RBC Occ /HPF (0-2) Urine WBC Occ /HPF (0-4) Urine Bacteria 0 /HPF (0-FEW) Urine Hyaline Casts Many /HPF Urine Mucus Marked /LPF Medications Current Medications Sodium Chloride 500 ml @ 500 mls/hr 1X ONCE IV Last administered on 08/25/18at 21:10; Start 08/25/18 at 20:00; Stop 08/25/18 at 20:59; Status DC Cefepime HCl (Maxipime) 2 gm Q8HRS IVP Last administered on 08/26/18at 06:25; Start 08/26/18 at 06:00 Vancomycin HCl (Vanco Per Pharmacy) 1 each PRN DAILY PRN MC SEE COMMENTS; Start 08/25/18 at 22:45; Stop 08/25/18 at 23:22; Status DC Cefepime HCl (Maxipime) 2 gm ONCE ONCE IVP Last administered on 08/25/18at 23:07 ; Start 08/25/18 at 23:00; Stop 08/25/18 at 23:01; Status DC Vancomycin HCl 2 gm/Sodium Chloride 500 ml @ 250 mls/hr 1X ONCE IV Last administered on 08/25/18 23:00; Start 08/25/18 at 23:00; Stop 08/26/18 at 00:59; Status DC Sodium Chloride 1,000 ml @ 125 mls/hr Q8H IV Last administered on 08/26/18 06: 26; Start 08/25/18 at 23:00; Stop 08/26/18 at 22:59 Acetaminophen (Tylenol) 650 mg PRN Q6HRS PRN PO FEVER > 100.5'F; Start 08/25/18 at 23:00 Dronabinol (Marinol) 2.5 mg DAILY PO Last administered on 08/26/18 09:10; Start 08/26/18 at 09:00 Furosemide (Lasix) 20 mg DAILY PO Last administered on 08/26/18 09:09; Start at 09:00 Guaifenesin (Mucinex) 600 mg BID PO Last administered on 08/26/18 09:09; Start 08/26/18 at 09:00 Isosorbide Mononitrate (Imdur) 15 mg DAILY PO Last administered on 08/26/18 09: 10; Start 08/26/18 at 09:00 Non-Formulary Medication (Fluticasone/ Salmeterol (Advair 500-50 Diskus)) 1 puff BID IH ; Start 08/26/18 at 09:00; Status UNV Gabapentin (Neurontin) 600 mg TID PO Last administered on 08/26/18 09:10; Start 08/26/18 at 09:00 Budesonide (Pulmicort) 0.5 mg RTBID NEB Last administered on 08/26/18 07:14; Start 08/26/18 at 08:00 Albuterol Sulfate (Ventolin Neb Soln) 2.5 mg RTQID NEB Last administered on 08/26 11:03; Start 08/26/18 at 08:00 Diphenhydramine HCl (Benadryl) 25 mg PRN Q6HRS PRN PO INSOMNIA; Start 08/26/18 at 01:15; Stop 08/26/18 at 01:22; Status DC Diphenhydramine HCl (Benadryl) 25 mg PRN QHS PRN PO INSOMNIA, MAY REPEAT X1 Last administered on 08/26/18at 01:44; Start 08/26/18 at 01:30 Active Scripts Active Reported Isosorbide Mononitrate Er (Isosorbide Mononitrate) 30 Mg Tab.er.24h 0.5 Tab PO DAILY Mucinex (Guaifenesin) 600 Mg Tablet.er 1 Tab PO BID Gabapentin 600 Mg Tablet 600 Mg PO TID Lasix (Furosemide) 20 Mg Tablet 1 Tab PO DAILY Advair 500-50 Diskus (Fluticasone/Salmeterol) 1 Each Disk.w.dev 1 Puff IH BID Marinol (Dronabinol) 2.5 Mg Capsule 2.5 Mg PO Doxycycline Hyclate 100 Mg Tablet. 1 Tab PO BID Vitals/I & O Vital Sign - Last 24 Hours 08/25/18 08/25/18 08/25/18 08/25/18 19:49 20:45 21:15 21:45 Temp 100.2 100.2 Pulse 97 84 85 85 Resp 16 18 18 18 B/P (MAP) 117/50 (72) 128/61 (83) 131/62 (85) 128/58 (81) Pulse Ox 95 93 94 93 O2 Delivery Room Air Room Air Room Air Room Air 08/25/18 08/25/18 08/25/18 08/25/18 22:15 22:45 23:15 23:22 Temp 98.5 98.5 Pulse 80 82 81 Resp 18 16 16 B/P (MAP) 121/56 (77) 133/63 (86) 123/60 (81) Pulse Ox 89 89 88 O2 Delivery Room Air Room Air Room Air 08/26/18 08/26/18 08/26/18 08/26/18 00:15 00:27 03:22 07:00 Temp 98.9 98.8 97.4 98.9 98.8 97.4 Pulse 83 83 81 Resp 16 16 18 B/P (MAP) 124/60 (81) 107/55 (72) 116/57 (76) Pulse Ox 92 94 92 O2 Delivery Room Air Room Air Room Air Room Air 08/26/18 08/26/18 08/26/18/9/19 07:16 09:10 11:00 11:04 Temp 98.5 98.5 Pulse 81 84 Resp 18 B/P (MAP) 116/57 114/56 (75) Pulse Ox 94 90 94 O2 Delivery Room Air Room Air Room Air Intake and Output 08/25/18 08/25/18 08/26/18 15:00 23:00 07:00 Intake Total 500 ml 100 ml Output Total 200 ml Balance 500 ml -100 ml SANKET MENDEZ MD Aug 26, 2018 12:08
--- NOTE | 2018-08-26 13:43 | PDOC2 ---
CONSULT Date of Consult Date of Consult DATE: 08/26/18 TIME: 13:25 Reason for consultation: Neutropenic fever Consult: Hematology oncology, Dr. Minnie Joseph History of present illness: Patient is a 72-year-old male who had fever 3 days , occurring in the evening, up to about 101, associated with malaise, and neutropenia, he was admitted at Hospital last night and placed on broad- spectrum antibiotics and fever has since resolved since he has been admitted improved with antibiotics. 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 and is pending clinical trial Past medical history: AML Osteoarthritis PVD Hypertension Hyperlipidemia Peripheral neuropathy Past surgical history: Appendectomy Bone marrow biopsies Allergies: Levofloxacin Medications: See attached list Social history: , smoking Family history: Lung cancer Review of systems: Fever, malaise, peripheral vascular changes on his lower extremities including some slight ulcerations at his toes, generalized aches and pains, otherwise 10 point review of systems negative Physical exam: Vitals reviewed Gen.: Elderly man resting in bed, in no acute distress HEENT: mucous membranes moist, head normocephalic atraumatic Neck: Supple, no lymphadenopathy Lymph nodes: No palpable lymphadenopathy neck or axilla Lungs: Breathing comfortably, no evidence of respiratory distress Abdomen: Soft, nontender, nondistended Extremities: PVD changes bilateral lower extremities with some slight ulcerations at his toes and poor hygiene at feet Skin: hyperpigmentation and some scabs at lower extremities Neuro: Alert and oriented 3 Psych: depressed mood and flat affect Lab reviewed: White count 1.4, hemoglobin 6.8, platelets 19 Urinalysis negative leuk esterase, no bacteria, negative nitrates Flu negative Creatinine 0.7 procalcitonin less than 0.1 Rads reviewed: Chest x-ray no focal pneumonia, prominent perihilar markings, inflammatory versus atelectasis Case discussed with: Patient, and medical team, records reviewed in [employer] and [facility] [facility], including labs and radiology, please see note for summary details. Assessment and Plan: 72 yo man w/ AML in relapse pending clinical trial admitted w/ neutropenic fever anemia: Would transfuse for hemoglobin less than 7 Thrombocytopenia: Would transfuse for plt count less than 20,000 with fever, less than 10,000 spontaneously or less than 50,000 with bleeding, platelet transfusion given today for platelet count of 19 due to fever yesterday, MAXIMUM TEMPERATURE has been 100.2 here Anemia: Would transfuse for hemoglobin less than 7 Neutropenic fever: On broad-spectrum antibiotics with cefepime, urinalysis negative, chest x-ray without pneumonia, blood cultures are being drawn, port looks okay, would continue antibiotics and avoid G-CSF due to AML AML: Pending clinical trial, can readdress goals of care when Dr. Santacruz returns on Tuesday Would continue acyclovir and fluconazole prophylaxis, he was on Ceftin prophylaxis prior to admission toe slight ulceration: Will consult wound care. Thank you kindly for this consultation, and please don't hesitate to call with any further questions. Family History Family History: Other (negative found noncontributory to the present) Current Medications Current Medications Current Medications Sodium Chloride 500 ml @ 500 mls/hr 1X ONCE IV Last administered on 08/25/18 21:10; Start 08/25/18 at 20:00; Stop 08/25/18 at 20:59; Status DC Cefepime HCl (Maxipime) 2 gm Q8HRS IVP Last administered on 08/26/18at 06:25; Start 08/26/18 at 06:00 Vancomycin HCl (Vanco Per Pharmacy) 1 each PRN DAILY PRN MC SEE COMMENTS; Start 08/25/18 at 22:45; Stop 08/25/18 at 23:22; Status DC Cefepime HCl (Maxipime) 2 gm ONCE ONCE IVP Last administered on 08/25/18 23:07 ; Start 08/25/18 at 23:00; Stop 08/25/18 at 23:01; Status DC Vancomycin HCl 2 gm/Sodium Chloride 500 ml @ 250 mls/hr 1X ONCE IV Last administered on 08/25/18at 23:00; Start 08/25/18 at 23:00; Stop 08/26/18 at 00:59; Status DC Sodium Chloride 1,000 ml @ 125 mls/hr Q8H IV Last administered on 08/26/18 06: 26; Start 08/25/18 at 23:00; Stop 08/26/18 at 22:59 Acetaminophen (Tylenol) 650 mg PRN Q6HRS PRN PO FEVER > 100.5'F; Start 08/25/18 at 23:00 Dronabinol (Marinol) 2.5 mg DAILY PO Last administered on 08/26/18 09:10; Start 08/26/18 at 09:00 Furosemide (Lasix) 20 mg DAILY PO Last administered on 08/26/18 09:09; Start at 09:00 Guaifenesin (Mucinex) 600 mg BID PO Last administered on 08/26/18 09:09; Start 08/26/18 at 09:00 Isosorbide Mononitrate (Imdur) 15 mg DAILY PO Last administered on 08/26/18 09: 10; Start 08/26/18 at 09:00 Non-Formulary Medication (Fluticasone/ Salmeterol (Advair 500-50 Diskus)) 1 puff BID IH ; Start 08/26/18 at 09:00; Status UNV Gabapentin (Neurontin) 600 mg TID PO Last administered on 08/26/18 09:10; Start 08/26/18 at 09:00 Budesonide (Pulmicort) 0.5 mg RTBID NEB Last administered on 08/26/18at 07:14; Start 08/26/18 at 08:00 Albuterol Sulfate (Ventolin Neb Soln) 2.5 mg RTQID NEB Last administered on 08/26 11:03; Start 08/26/18 at 08:00 Diphenhydramine HCl (Benadryl) 25 mg PRN Q6HRS PRN PO INSOMNIA; Start 08/26/18 at 01:15; Stop 08/26/18 at 01:22; Status DC Diphenhydramine HCl (Benadryl) 25 mg PRN QHS PRN PO INSOMNIA, MAY REPEAT X1 Last administered on 08/26/18at 01:44; Start 08/26/18 at 01:30 Active Scripts Active Reported Isosorbide Mononitrate Er (Isosorbide Mononitrate) 30 Mg Tab.er.24h 0.5 Tab PO DAILY Mucinex (Guaifenesin) 600 Mg Tablet.er 1 Tab PO BID Gabapentin 600 Mg Tablet 600 Mg PO TID Lasix (Furosemide) 20 Mg Tablet 1 Tab PO DAILY Advair 500-50 Diskus (Fluticasone/Salmeterol) 1 Each Disk.w.dev 1 Puff IH BID Marinol (Dronabinol) 2.5 Mg Capsule 2.5 Mg PO Doxycycline Hyclate 100 Mg Tablet. 1 Tab PO BID Allergies Allergies: Coded Allergies: levofloxacin (Verified Allergy, Intermediate, Rash, 08/25/18) Vitals VITALS Vital Signs Date Time Temp Pulse Resp B/P (MAP) Pulse Ox O2 Delivery O2 Flow Rate FiO2 08/26/18 12:48 99.7 100 16 123/62 99.7 08/26/18 11:04 94 Room Air Labs Labs Laboratory Tests Test 08/25/18 20:25 08/25/18 20:54 08/25/18 22:00 08/26/18 08:52 Influenza Type A Antigen Negative (NEGATIVE) Influenza Type B Antigen Negative (NEGATIVE) White Blood Count 2.1 x10^3/uL (4.0-11.0) 1.4 x10^3/uL (4.0-11.0) Red Blood Count 2.43 x10^6/uL (4.30-5.70) 2.32 x10^6/uL (4.30-5.70) Hemoglobin 7.1 g/dL (13.0-17.5) 6.8 g/dL (13.0-17.5) Hematocrit 20.8 % (39.0-53.0) 20.0 % (39.0-53.0) Mean Corpuscular Volume 86 fL (79-100) 86 fL (79-100) Mean Corpuscular Hemoglobin 29 pg (25-35) 29 pg (25-35) Mean Corpuscular Hemoglobin Concent 34 g/dL (31-37) 34 g/dL (31-37) Red Cell Distribution Width 13.8 % (11.5-14.5) 13.6 % (11.5-14.5) Platelet Count 31 x10^3/uL (140-400) 19 x10^3/uL (140-400) Neutrophils (%) (Auto) 15 % (31-73) 12 % (31-73) Lymphocytes (%) (Auto) 25 % (24-48) 35 % (24-48) Monocytes (%) (Auto) 60 % (0-9) 52 % (0-9) Eosinophils (%) (Auto) 0 % (0-3) 1 % (0-3) Basophils (%) (Auto) 0 % (0-3) 0 % (0-3) Neutrophils # (Auto) 0.3 x10^3uL (1.8-7.7) 0.2 x10^3uL (1.8-7.7) Lymphocytes # (Auto) 0.5 x10^3/uL (1.0-4.8) 0.5 x10^3/uL (1.0-4.8) Monocytes # (Auto) 1.3 x10^3/uL (0.0-1.1) 0.7 x10^3/uL (0.0-1.1) Eosinophils # (Auto) 0.0 x10^3/uL (0.0-0.7) 0.0 x10^3/uL (0.0-0.7) Basophils # (Auto) 0.0 x10^3/uL (0.0-0.2) 0.0 x10^3/uL (0.0-0.2) Prothrombin Time 17.1 SEC (11.7-14.0) Prothromb Time International Ratio 1.4 (0.8-1.1) Sodium Level 141 mmol/L (136-145) 144 mmol/L (136-145) Potassium Level 3.9 mmol/L (3.5-5.1) 3.8 mmol/L (3.5-5.1) Chloride Level 104 mmol/L (98-107) 106 mmol/L (98-107) Carbon Dioxide Level 28 mmol/L (21-32) 28 mmol/L (21-32) Anion Gap 9 (6-14) 10 (6-14) Blood Urea Nitrogen 21 mg/dL (8-26) 18 mg/dL (8-26) Creatinine 1.0 mg/dL (0.7-1.3) 0.7 mg/dL (0.7-1.3) Estimated GFR (Cockcroft-Gault) 73.0 110.2 BUN/Creatinine Ratio 21 (6-20) Glucose Level 137 mg/dL (70-99) 179 mg/dL (70-99) Lactic Acid Level 1.1 mmol/L (0.4-2.0) Calcium Level 8.9 mg/dL (8.5-10.1) 8.4 mg/dL (8.5-10.1) Total Bilirubin 0.2 mg/dL (0.2-1.0) Aspartate Amino Transf (AST/SGOT) 38 U/L (15-37) Alanine Aminotransferase (ALT/SGPT) 82 U/L (16-63) Alkaline Phosphatase 101 U/L (46-116) Troponin I Quantitative < 0.017 ng/mL (0.000-0.055) Total Protein 6.7 g/dL (6.4-8.2) Albumin 3.3 g/dL (3.4-5.0) Albumin/Globulin Ratio 1.0 (1.0-1.7) Procalcitonin < 0.10 ng/mL (0.00-0.10) Urine Collection Type Unknown Urine Color Lorna Urine Clarity Clear Urine pH 5.5 Urine Specific [place] >=1.030 Urine Protein Negative mg/dL (NEG-TRACE) Urine Glucose (UA) Negative mg/dL (NEG) Urine Ketones (Stick) Trace mg/dL (NEG) Urine Blood Negative (NEG) Urine Nitrite Negative (NEG) Urine Bilirubin Small (NEG) Urine Urobilinogen Dipstick 1.0 mg/dL (0.2 mg/dL) Urine Leukocyte Esterase Negative (NEG) Urine RBC Occ /HPF (0-2) Urine WBC Occ /HPF (0-4) Urine Bacteria 0 /HPF (0-FEW) Urine Hyaline Casts Many /HPF Urine Mucus Marked /LPF Laboratory Tests Test 08/25/18 20:25 08/25/18 20:54 08/25/18 22:00 08/26/18 08:52 Influenza Type A Antigen Negative (NEGATIVE) Influenza Type B Antigen Negative (NEGATIVE) White Blood Count 2.1 x10^3/uL (4.0-11.0) 1.4 x10^3/uL (4.0-11.0) Red Blood Count 2.43 x10^6/uL (4.30-5.70) 2.32 x10^6/uL (4.30-5.70) Hemoglobin 7.1 g/dL (13.0-17.5) 6.8 g/dL (13.0-17.5) Hematocrit 20.8 % (39.0-53.0) 20.0 % (39.0-53.0) Mean Corpuscular Volume 86 fL (79-100) 86 fL (79-100) Mean Corpuscular Hemoglobin 29 pg (25-35) 29 pg (25-35) Mean Corpuscular Hemoglobin Concent 34 g/dL (31-37) 34 g/dL (31-37) Red Cell Distribution Width 13.8 % (11.5-14.5) 13.6 % (11.5-14.5) Platelet Count 31 x10^3/uL (140-400) 19 x10^3/uL (140-400) Neutrophils (%) (Auto) 15 % (31-73) 12 % (31-73) Lymphocytes (%) (Auto) 25 % (24-48) 35 % (24-48) Monocytes (%) (Auto) 60 % (0-9) 52 % (0-9) Eosinophils (%) (Auto) 0 % (0-3) 1 % (0-3) Basophils (%) (Auto) 0 % (0-3) 0 % (0-3) Neutrophils # (Auto) 0.3 x10^3uL (1.8-7.7) 0.2 x10^3uL (1.8-7.7) Lymphocytes # (Auto) 0.5 x10^3/uL (1.0-4.8) 0.5 x10^3/uL (1.0-4.8) Monocytes # (Auto) 1.3 x10^3/uL (0.0-1.1) 0.7 x10^3/uL (0.0-1.1) Eosinophils # (Auto) 0.0 x10^3/uL (0.0-0.7) 0.0 x10^3/uL (0.0-0.7) Basophils # (Auto) 0.0 x10^3/uL (0.0-0.2) 0.0 x10^3/uL (0.0-0.2) Prothrombin Time 17.1 SEC (11.7-14.0) Prothromb Time International Ratio 1.4 (0.8-1.1) Sodium Level 141 mmol/L (136-145) 144 mmol/L (136-145) Potassium Level 3.9 mmol/L (3.5-5.1) 3.8 mmol/L (3.5-5.1) Chloride Level 104 mmol/L (98-107) 106 mmol/L (98-107) Carbon Dioxide Level 28 mmol/L (21-32) 28 mmol/L (21-32) Anion Gap 9 (6-14) 10 (6-14) Blood Urea Nitrogen 21 mg/dL (8-26) 18 mg/dL (8-26) Creatinine 1.0 mg/dL (0.7-1.3) 0.7 mg/dL (0.7-1.3) Estimated GFR (Cockcroft-Gault) 73.0 110.2 BUN/Creatinine Ratio 21 (6-20) Glucose Level 137 mg/dL (70-99) 179 mg/dL (70-99) Lactic Acid Level 1.1 mmol/L (0.4-2.0) Calcium Level 8.9 mg/dL (8.5-10.1) 8.4 mg/dL (8.5-10.1) Total Bilirubin 0.2 mg/dL (0.2-1.0) Aspartate Amino Transf (AST/SGOT) 38 U/L (15-37) Alanine Aminotransferase (ALT/SGPT) 82 U/L (16-63) Alkaline Phosphatase 101 U/L (46-116) Troponin I Quantitative < 0.017 ng/mL (0.000-0.055) Total Protein 6.7 g/dL (6.4-8.2) Albumin 3.3 g/dL (3.4-5.0) Albumin/Globulin Ratio 1.0 (1.0-1.7) Procalcitonin < 0.10 ng/mL (0.00-0.10) Urine Collection Type Unknown Urine Color Lorna Urine Clarity Clear Urine pH 5.5 Urine Specific [place] >=1.030 Urine Protein Negative mg/dL (NEG-TRACE) Urine Glucose (UA) Negative mg/dL (NEG) Urine Ketones (Stick) Trace mg/dL (NEG) Urine Blood Negative (NEG) Urine Nitrite Negative (NEG) Urine Bilirubin Small (NEG) Urine Urobilinogen Dipstick 1.0 mg/dL (0.2 mg/dL) Urine Leukocyte Esterase Negative (NEG) Urine RBC Occ /HPF (0-2) Urine WBC Occ /HPF (0-4) Urine Bacteria 0 /HPF (0-FEW) Urine Hyaline Casts Many /HPF Urine Mucus Marked /LPF MINNIE JOSEPH MD Aug 26, 2018 13:43
--- NOTE | 2018-08-26 14:48 | NUR ---
Post blood transfusion oral temperature spiked to 103.0 F. Pt oxygen saturations approx. 70's on room air. This RN and control room agent, Kevin, called a rapid response on patient. Andreea, ICU charge nurse, nursing blending supervisor, and RT responded to rapid response. Stat lactic acid, UA done and blood tubing was given to blood bank to be tested for transfusion reaction. Dr. Joseph notified. Dr. Cadena notified of patient condition and received orders for medications and to transfer patient to [facility] room 250. Gave report to JOANNE Castellanos. All belongings with patient at the time of transfer. Family at the bedside during transfer, present situation explained to the daughter and they verbalized understanding of reason behind transfer. JOANNE Doran and KENIA Jeffers, transferred patient to room 250.
[2018-08-26] MEDS: FLUCONAZOLE 100 MG TABLET. PO SCH (14:50)
[2018-08-26] MEDS: ACETAMINOPHEN 325 MG TABLET. PO PRN (14:56)
[2018-08-26] MEDS ORDERED: KETOROLAC 30 MG/ML VIAL. IV ONE (15:45)
[2018-08-26] MEDS ORDERED: diphenhydrAMINE 50 MG/ML VIAL IVP ONE (15:45)
[2018-08-26] MEDS ORDERED: methylPREDNISolone SOD SUCC PF 125 MG/2 ML VIAL. IV ONE (15:45)
[2018-08-26 15:49] LABS: BILIRUBIN,URINE NEGATIVE (NEG); CLARITY,URINE CLEAR; COLOR,URINE YELLOW; NITRITE,URINE NEGATIVE (NEG); PROTEIN,URINE NEGATIVE (NEG-TRACE); UROBILINOGEN,URINE 0.2 mg/dL (0.2 mg/dL)
--- NOTE | 2018-08-26 15:53 | PDOC ---
GENERAL General: RAPID RESPONSE: FEVER OF 103F AFTER BLOOD TRANSFUSION, HYPOTENSION. Given fluid bolus, ordered diphenhydramine, toradol, solumedrol Transfer to [facility] or ICU for change in condition, needs closer monitoring VITAL SIGNS Vital Signs: Vital Signs Date Time Temp Pulse Resp B/P (MAP) Pulse Ox O2 Delivery O2 Flow Rate FiO2 08/26/18 15:35 95 Nasal Cannula 4.0 08/26/18 14:48 103.0 106 16 143/53 103.0 I & O I & O Intake and Output 08/26/18 07:00 Intake Total 600 ml Output Total 200 ml Balance 400 ml Intake Oral 100 ml IV Total 500 ml Output Urine Total 200 ml ALLERGIES Allergies: Allergies Coded Allergies Type Severity Reaction Last Updated Verified levofloxacin Allergy Intermediate Rash 08/25/18 Yes MEDS Medications: Current Medications Medications (Trade) Dose Ordered Sig/Cr Start Time Stop Time Status Last Admin Dose Admin Acetaminophen (Tylenol) 650 mg PRN Q6HRS PRN 08/25/18 23:00 08/26/18 14:56 650 MG Acyclovir (Zovirax) 400 mg BID 08/26/18 21:00 Albuterol Sulfate (Ventolin Neb Soln) 2.5 mg RTQID 08/26/18 08:00 08/26/18 15:23 2.5 MG Budesonide (Pulmicort) 0.5 mg RTBID 08/26/18 08:00 08/26/18 07:14 0.5 MG Cefepime HCl (Maxipime) 2 gm ONCE ONCE 08/25/18 23:00 08/25/18 23:01 DC 08/25/18 23:07 2 GM Diphenhydramine HCl (Benadryl) 25 mg 1X ONCE 08/26/18 15:45 08/26/18 15:46 DC Dronabinol (Marinol) 2.5 mg DAILY 08/26/18 09:00 08/26/18 09:10 2.5 MG Fluconazole (Diflucan) 100 mg DAILY 08/26/18 14:00 08/26/18 14:50 100 MG Furosemide (Lasix) 20 mg DAILY 08/26/18 09:00 08/26/18 09:09 20 MG Gabapentin (Neurontin) 600 mg TID 08/26/18 09:00 08/26/18 14:50 600 MG Guaifenesin (Mucinex) 600 mg BID 08/26/18 09:00 08/26/18 09:09 600 MG Isosorbide Mononitrate (Imdur) 15 mg DAILY 08/26/18 09:00 08/26/18 09:10 15 MG Ketorolac Tromethamine (Toradol 30mg Vial) 30 mg 1X ONCE 08/26/18 15:45 08/26/18 15:46 DC Methylprednisolone Sodium Succinate (SOLU-Medrol 125MG VIAL) 125 mg 1X ONCE 08/26/18 15:45 08/26/18 15:46 DC Non-Formulary Medication (Fluticasone/ Salmeterol (Advair 500-50 Diskus)) 1 puff BID 08/26/18 09:00 UNV Sodium Chloride 1,000 ml @ 125 mls/hr Q8H 08/25/18 23:00 08/26/18 22:59 08/26/18 15:00 125 MLS/HR Vancomycin HCl (Vanco Per Pharmacy) 1 each PRN DAILY PRN 08/25/18 22:45 08/25/18 23:22 DC Vancomycin HCl 2 gm/Sodium Chloride 500 ml @ 250 mls/hr 1X ONCE 08/25/18 23:00 08/26/18 00:59 DC 08/25/18 23:00 250 MLS/HR LAB Lab: Laboratory Tests Test 08/25/18 20:25 08/25/18 20:54 08/25/18 22:00 08/26/18 08:52 Influenza Type A Antigen Negative (NEGATIVE) Influenza Type B Antigen Negative (NEGATIVE) White Blood Count 2.1 x10^3/uL (4.0-11.0) 1.4 x10^3/uL (4.0-11.0) Red Blood Count 2.43 x10^6/uL (4.30-5.70) 2.32 x10^6/uL (4.30-5.70) Hemoglobin 7.1 g/dL (13.0-17.5) 6.8 g/dL (13.0-17.5) Hematocrit 20.8 % (39.0-53.0) 20.0 % (39.0-53.0) Mean Corpuscular Volume 86 fL (79-100) 86 fL (79-100) Mean Corpuscular Hemoglobin 29 pg (25-35) 29 pg (25-35) Mean Corpuscular Hemoglobin Concent 34 g/dL (31-37) 34 g/dL (31-37) Red Cell Distribution Width 13.8 % (11.5-14.5) 13.6 % (11.5-14.5) Platelet Count 31 x10^3/uL (140-400) 19 x10^3/uL (140-400) Neutrophils (%) (Auto) 15 % (31-73) 12 % (31-73) Lymphocytes (%) (Auto) 25 % (24-48) 35 % (24-48) Monocytes (%) (Auto) 60 % (0-9) 52 % (0-9) Eosinophils (%) (Auto) 0 % (0-3) 1 % (0-3) Basophils (%) (Auto) 0 % (0-3) 0 % (0-3) Neutrophils # (Auto) 0.3 x10^3uL (1.8-7.7) 0.2 x10^3uL (1.8-7.7) Lymphocytes # (Auto) 0.5 x10^3/uL (1.0-4.8) 0.5 x10^3/uL (1.0-4.8) Monocytes # (Auto) 1.3 x10^3/uL (0.0-1.1) 0.7 x10^3/uL (0.0-1.1) Eosinophils # (Auto) 0.0 x10^3/uL (0.0-0.7) 0.0 x10^3/uL (0.0-0.7) Basophils # (Auto) 0.0 x10^3/uL (0.0-0.2) 0.0 x10^3/uL (0.0-0.2) Prothrombin Time 17.1 SEC (11.7-14.0) Prothromb Time International Ratio 1.4 (0.8-1.1) Sodium Level 141 mmol/L (136-145) 144 mmol/L (136-145) Potassium Level 3.9 mmol/L (3.5-5.1) 3.8 mmol/L (3.5-5.1) Chloride Level 104 mmol/L (98-107) 106 mmol/L (98-107) Carbon Dioxide Level 28 mmol/L (21-32) 28 mmol/L (21-32) Anion Gap 9 (6-14) 10 (6-14) Blood Urea Nitrogen 21 mg/dL (8-26) 18 mg/dL (8-26) Creatinine 1.0 mg/dL (0.7-1.3) 0.7 mg/dL (0.7-1.3) Estimated GFR (Cockcroft-Gault) 73.0 110.2 BUN/Creatinine Ratio 21 (6-20) Glucose Level 137 mg/dL (70-99) 179 mg/dL (70-99) Lactic Acid Level 1.1 mmol/L (0.4-2.0) Calcium Level 8.9 mg/dL (8.5-10.1) 8.4 mg/dL (8.5-10.1) Total Bilirubin 0.2 mg/dL (0.2-1.0) Aspartate Amino Transf (AST/SGOT) 38 U/L (15-37) Alanine Aminotransferase (ALT/SGPT) 82 U/L (16-63) Alkaline Phosphatase 101 U/L (46-116) Troponin I Quantitative < 0.017 ng/mL (0.000-0.055) Total Protein 6.7 g/dL (6.4-8.2) Albumin 3.3 g/dL (3.4-5.0) Albumin/Globulin Ratio 1.0 (1.0-1.7) Procalcitonin < 0.10 ng/mL (0.00-0.10) Urine Collection Type Unknown Urine Color Lorna Urine Clarity Clear Urine pH 5.5 Urine Specific [place] >=1.030 Urine Protein Negative mg/dL (NEG-TRACE) Urine Glucose (UA) Negative mg/dL (NEG) Urine Ketones (Stick) Trace mg/dL (NEG) Urine Blood Negative (NEG) Urine Nitrite Negative (NEG) Urine Bilirubin Small (NEG) Urine Urobilinogen Dipstick 1.0 mg/dL (0.2 mg/dL) Urine Leukocyte Esterase Negative (NEG) Urine RBC Occ /HPF (0-2) Urine WBC Occ /HPF (0-4) Urine Bacteria 0 /HPF (0-FEW) Urine Hyaline Casts Many /HPF Urine Mucus Marked /LPF Test 08/26/18 15:16 Glucose (Fingerstick) 116 mg/dL (70-99) MICHELLE REECE MD Aug 26, 2018 15:53
[2018-08-26 16:10] LABS: BACTERIA,URINE 0 /HPF (0-FEW); RBC,URINE 0 /HPF (0-2); WBC,URINE 0 /HPF (0-4)
[2018-08-26] MEDS ORDERED: IV NORMAL SALINE 1000ML BAG 1,000 ML IV ONE (16:30)
--- NOTE | 2018-08-26 16:50 | NUR ---
Rapid resp note: Called to rm 671 for temp 103 and increased O2 demands post PRBC(sat was 70% on RA). Unit had just completed. Pt alert and had been placed on 100NRB. RT at bedside and adm BxTx and then placed on 4 l n/c with sat >90%. EKG ST. BP 143/53 . Blood bank notified of poss Transfusion reaction UA sent and blood tubing retained. Seema from BB came and lab was drawn, Pt with port Rt chest. Pt adm yesterday with neutropenia and fever. Had already been worked up for sepsis and placed on abx. (cefipime and Vanc) Dr Cadena on unit and orders rec'd for Toradol, Benadryl and Solumedrol. these were given IV. Tylenol had already bee given. Family at bedside. Pt improved from resp standpoint to no distress and sat > 90 on 4l n/c. Denied any discomfort anywhere and no rashes seen. Stat lactic sent. Also, Lizzie from Blood bank checked with pathologist and stated that ok to give platelet pack that had already been checked out. Pt plt ct today 19. Dr Redd paged. NS bolus infusing(#2 liter) as BP trended down to 93/47 HR 106. BlCx had been drawn on adm. Pt transferred to [facility] for closer monitoring.
--- NOTE | 2018-08-26 17:11 | NUR ---
Patient transferred to [facility] at 1645 from 6S for post blood transfusion reaction. Patient arrives appearing fatigued, receiving fluid bolus. VS are listed in first transfusion vitals for the platelets. Platelets are currently running. Patient tolerating infusion well. Patient is sleeping at this time. Patient complains of no pain. Patient has many family members at bedside. Currently, family is taking the transition well with no further questions. Will continue to monitor patient at this time.
[2018-08-26] MEDS: ACYCLOVIR 200 MG CAPSULE. PO SCH (21:23)
[2018-08-27 03:32] VITALS: BP 101/56
[2018-08-27] MEDS: CEFEPIME HCL IV Push 2 GM VIAL. IVP SCH ×3 (05:54→21:34)
[2018-08-27 07:17] VITALS: BP 119/56
[2018-08-27] MEDS: ALBUTEROL SULFATE 2.5 MG/3 ML NEBU. NEB SCH ×4 (08:10→19:49)
[2018-08-27] MEDS: BUDESONIDE 0.5 MG/2 ML NEBU. NEB SCH ×2 (08:11→19:49)
[2018-08-27] MEDS: DRONABINOL 2.5 MG CAPSULE. PO SCH (08:47)
[2018-08-27] MEDS: GABAPENTIN 300 MG CAPSULE. PO SCH ×3 (08:47→20:53)
[2018-08-27] MEDS: FUROSEMIDE 20 MG TABLET PO SCH (08:47)
[2018-08-27] MEDS: ACYCLOVIR 200 MG CAPSULE. PO SCH ×2 (08:47→20:52)
[2018-08-27] MEDS: FLUCONAZOLE 100 MG TABLET. PO SCH (08:47)
[2018-08-27] MEDS: ISOSORBIDE MONONITRATE ER 30 MG TAB.ER.24H PO SCH (08:48)
[2018-08-27 09:18] LABS: BASO % 1 % (0-3); EOS % 0 % (0-3); HEMATOCRIT 21.7 % (39.0-53.0); HEMOGLOBIN 7.3 g/dL (13.0-17.5); LYMPH # 0.5 x10^3/uL (1.0-4.8); LYMPH % 38 % (24-48); MEAN CORPUSCULAR HEMOGLOBIN 29 pg (25-35); MEAN CORPUSCULAR HGB CONC 34 g/dL (31-37); MEAN CORPUSCULAR VOLUME 87 fL (79-100); MONO # 0.5 x10^3/uL (0.0-1.1); MONO % 38 % (0-9); NEUT # 0.3 x10^3uL (1.8-7.7); NEUT % 23 % (31-73); RED BLOOD COUNT 2.51 x10^6/uL (4.30-5.70); RED CELL DISTRIBUTION WIDTH 13.8 % (11.5-14.5)
[2018-08-27 09:25] LABS: WHITE BLOOD COUNT 1.4 x10^3/uL (4.0-11.0)
[2018-08-27 09:26] LABS: PLATELET COUNT 23 x10^3/uL (140-400)
--- NOTE | 2018-08-27 10:29 | PDOC ---
PROGRESS NOTES Chief Complaint Chief Complaint Neutropenic fever Normocytic anemia most likely related to underlying malignant process Thrombocytopenia History of AML History of Raynauds Depression? 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 of AML He has not had chemotherapy in 3 months We are following CBCs Pt is resting comfortably in bed, mild distress Discussed with RN and family at bedside He had a blood transfusion reaction yesterday, RR called Vitals Vitals Vital Signs Date Time Temp Pulse Resp B/P (MAP) Pulse Ox O2 Delivery O2 Flow Rate FiO2 08/27/18 08:48 68 120/58 08/27/18 08:12 100 Nasal Cannula 2.0 08/27/18 07:17 98.1 18 98.1 Physical Exam General: Alert, Oriented X3, Cooperative, mild distress Heart: Regular rate, Normal S1, Normal S2 Lungs: Clear Abdomen: Normal bowel sounds, Soft, No tenderness Extremities: No clubbing, No cyanosis Skin: No rashes Labs LABS Laboratory Tests Test 08/26/18 15:16 08/26/18 15:30 08/26/18 16:20 08/27/18 09:00 Glucose (Fingerstick) 116 mg/dL (70-99) Urine Collection Type Unknown Urine Color Yellow Urine Clarity Clear Urine pH 5.0 Urine Specific [place] 1.015 Urine Protein Negative mg/dL (NEG-TRACE) Urine Glucose (UA) Negative mg/dL (NEG) Urine Ketones (Stick) Negative mg/dL (NEG) Urine Blood Negative (NEG) Urine Nitrite Negative (NEG) Urine Bilirubin Negative (NEG) Urine Urobilinogen Dipstick 0.2 mg/dL (0.2 mg/dL) Urine Leukocyte Esterase Negative (NEG) Urine RBC 0 /HPF (0-2) Urine WBC 0 /HPF (0-4) Urine Squamous Epithelial Cells None /LPF Urine Bacteria 0 /HPF (0-FEW) Urine Mucus Mod /LPF Lactic Acid Level 1.1 mmol/L (0.4-2.0) White Blood Count 1.4 x10^3/uL (4.0-11.0) Red Blood Count 2.51 x10^6/uL (4.30-5.70) Hemoglobin 7.3 g/dL (13.0-17.5) Hematocrit 21.7 % (39.0-53.0) Mean Corpuscular Volume 87 fL (79-100) Mean Corpuscular Hemoglobin 29 pg (25-35) Mean Corpuscular Hemoglobin Concent 34 g/dL (31-37) Red Cell Distribution Width 13.8 % (11.5-14.5) Platelet Count 23 x10^3/uL (140-400) Neutrophils (%) (Auto) 23 % (31-73) Lymphocytes (%) (Auto) 38 % (24-48) Monocytes (%) (Auto) 38 % (0-9) Eosinophils (%) (Auto) 0 % (0-3) Basophils (%) (Auto) 1 % (0-3) Neutrophils # (Auto) 0.3 x10^3uL (1.8-7.7) Lymphocytes # (Auto) 0.5 x10^3/uL (1.0-4.8) Monocytes # (Auto) 0.5 x10^3/uL (0.0-1.1) Eosinophils # (Auto) 0.0 x10^3/uL (0.0-0.7) Basophils # (Auto) 0.0 x10^3/uL (0.0-0.2) Review of Systems Review of Systems Pt reports weakness Pt denies CP, SOB, headache Assessment and Plan Assessmemt and Plan Assessment Neutropenic fever Normocytic anemia most likely related to underlying malignant process Thrombocytopenia History of AML History of Raynauds Depression? Plan Continue ABx, antifungal, antiviral medications Continue to monitor CBCs- anemia, leukopenia may require further blood transfusions, will monitor follow blood cultures home meds DVT prophylaxis heart monitoring appreciate further recs per subspecialty Comment Review of Relevant I have reviewed the following items kirsten (where applicable) has been applied. Labs Laboratory Tests Test 08/25/18 20:25 08/25/18 20:54 08/25/18 22:00 08/26/18 08:52 Influenza Type A Antigen Negative (NEGATIVE) Influenza Type B Antigen Negative (NEGATIVE) White Blood Count 2.1 x10^3/uL (4.0-11.0) 1.4 x10^3/uL (4.0-11.0) Red Blood Count 2.43 x10^6/uL (4.30-5.70) 2.32 x10^6/uL (4.30-5.70) Hemoglobin 7.1 g/dL (13.0-17.5) 6.8 g/dL (13.0-17.5) Hematocrit 20.8 % (39.0-53.0) 20.0 % (39.0-53.0) Mean Corpuscular Volume 86 fL (79-100) 86 fL (79-100) Mean Corpuscular Hemoglobin 29 pg (25-35) 29 pg (25-35) Mean Corpuscular Hemoglobin Concent 34 g/dL (31-37) 34 g/dL (31-37) Red Cell Distribution Width 13.8 % (11.5-14.5) 13.6 % (11.5-14.5) Platelet Count 31 x10^3/uL (140-400) 19 x10^3/uL (140-400) Neutrophils (%) (Auto) 15 % (31-73) 12 % (31-73) Lymphocytes (%) (Auto) 25 % (24-48) 35 % (24-48) Monocytes (%) (Auto) 60 % (0-9) 52 % (0-9) Eosinophils (%) (Auto) 0 % (0-3) 1 % (0-3) Basophils (%) (Auto) 0 % (0-3) 0 % (0-3) Neutrophils # (Auto) 0.3 x10^3uL (1.8-7.7) 0.2 x10^3uL (1.8-7.7) Lymphocytes # (Auto) 0.5 x10^3/uL (1.0-4.8) 0.5 x10^3/uL (1.0-4.8) Monocytes # (Auto) 1.3 x10^3/uL (0.0-1.1) 0.7 x10^3/uL (0.0-1.1) Eosinophils # (Auto) 0.0 x10^3/uL (0.0-0.7) 0.0 x10^3/uL (0.0-0.7) Basophils # (Auto) 0.0 x10^3/uL (0.0-0.2) 0.0 x10^3/uL (0.0-0.2) Prothrombin Time 17.1 SEC (11.7-14.0) Prothromb Time International Ratio 1.4 (0.8-1.1) Sodium Level 141 mmol/L (136-145) 144 mmol/L (136-145) Potassium Level 3.9 mmol/L (3.5-5.1) 3.8 mmol/L (3.5-5.1) Chloride Level 104 mmol/L (98-107) 106 mmol/L (98-107) Carbon Dioxide Level 28 mmol/L (21-32) 28 mmol/L (21-32) Anion Gap 9 (6-14) 10 (6-14) Blood Urea Nitrogen 21 mg/dL (8-26) 18 mg/dL (8-26) Creatinine 1.0 mg/dL (0.7-1.3) 0.7 mg/dL (0.7-1.3) Estimated GFR (Cockcroft-Gault) 73.0 110.2 BUN/Creatinine Ratio 21 (6-20) Glucose Level 137 mg/dL (70-99) 179 mg/dL (70-99) Lactic Acid Level 1.1 mmol/L (0.4-2.0) Calcium Level 8.9 mg/dL (8.5-10.1) 8.4 mg/dL (8.5-10.1) Total Bilirubin 0.2 mg/dL (0.2-1.0) Aspartate Amino Transf (AST/SGOT) 38 U/L (15-37) Alanine Aminotransferase (ALT/SGPT) 82 U/L (16-63) Alkaline Phosphatase 101 U/L (46-116) Troponin I Quantitative < 0.017 ng/mL (0.000-0.055) Total Protein 6.7 g/dL (6.4-8.2) Albumin 3.3 g/dL (3.4-5.0) Albumin/Globulin Ratio 1.0 (1.0-1.7) Procalcitonin < 0.10 ng/mL (0.00-0.10) Urine Collection Type Unknown Urine Color [place] Urine Clarity Clear Urine pH 5.5 Urine Specific [place] >=1.030 Urine Protein Negative mg/dL (NEG-TRACE) Urine Glucose (UA) Negative mg/dL (NEG) Urine Ketones (Stick) Trace mg/dL (NEG) Urine Blood Negative (NEG) Urine Nitrite Negative (NEG) Urine Bilirubin Small (NEG) Urine Urobilinogen Dipstick 1.0 mg/dL (0.2 mg/dL) Urine Leukocyte Esterase Negative (NEG) Urine RBC Occ /HPF (0-2) Urine WBC Occ /HPF (0-4) Urine Bacteria 0 /HPF (0-FEW) Urine Hyaline Casts Many /HPF Urine Mucus Marked /LPF Test 08/26/18 15:16 08/26/18 15:30 08/26/18 16:20 08/27/18 09:00 Glucose (Fingerstick) 116 mg/dL (70-99) Urine Collection Type Unknown Urine Color Yellow Urine Clarity Clear Urine pH 5.0 Urine Specific [place] 1.015 Urine Protein Negative mg/dL (NEG-TRACE) Urine Glucose (UA) Negative mg/dL (NEG) Urine Ketones (Stick) Negative mg/dL (NEG) Urine Blood Negative (NEG) Urine Nitrite Negative (NEG) Urine Bilirubin Negative (NEG) Urine Urobilinogen Dipstick 0.2 mg/dL (0.2 mg/dL) Urine Leukocyte Esterase Negative (NEG) Urine RBC 0 /HPF (0-2) Urine WBC 0 /HPF (0-4) Urine Squamous Epithelial Cells None /LPF Urine Bacteria 0 /HPF (0-FEW) Urine Mucus Mod /LPF Lactic Acid Level 1.1 mmol/L (0.4-2.0) White Blood Count 1.4 x10^3/uL (4.0-11.0) Red Blood Count 2.51 x10^6/uL (4.30-5.70) Hemoglobin 7.3 g/dL (13.0-17.5) Hematocrit 21.7 % (39.0-53.0) Mean Corpuscular Volume 87 fL (79-100) Mean Corpuscular Hemoglobin 29 pg (25-35) Mean Corpuscular Hemoglobin Concent 34 g/dL (31-37) Red Cell Distribution Width 13.8 % (11.5-14.5) Platelet Count 23 x10^3/uL (140-400) Neutrophils (%) (Auto) 23 % (31-73) Lymphocytes (%) (Auto) 38 % (24-48) Monocytes (%) (Auto) 38 % (0-9) Eosinophils (%) (Auto) 0 % (0-3) Basophils (%) (Auto) 1 % (0-3) Neutrophils # (Auto) 0.3 x10^3uL (1.8-7.7) Lymphocytes # (Auto) 0.5 x10^3/uL (1.0-4.8) Monocytes # (Auto) 0.5 x10^3/uL (0.0-1.1) Eosinophils # (Auto) 0.0 x10^3/uL (0.0-0.7) Basophils # (Auto) 0.0 x10^3/uL (0.0-0.2) Laboratory Tests Test 08/26/18 15:16 08/26/18 15:30 08/26/18 16:20 08/27/18 09:00 Glucose (Fingerstick) 116 mg/dL (70-99) Urine Collection Type Unknown Urine Color Yellow Urine Clarity Clear Urine pH 5.0 Urine Specific [place] 1.015 Urine Protein Negative mg/dL (NEG-TRACE) Urine Glucose (UA) Negative mg/dL (NEG) Urine Ketones (Stick) Negative mg/dL (NEG) Urine Blood Negative (NEG) Urine Nitrite Negative (NEG) Urine Bilirubin Negative (NEG) Urine Urobilinogen Dipstick 0.2 mg/dL (0.2 mg/dL) Urine Leukocyte Esterase Negative (NEG) Urine RBC 0 /HPF (0-2) Urine WBC 0 /HPF (0-4) Urine Squamous Epithelial Cells None /LPF Urine Bacteria 0 /HPF (0-FEW) Urine Mucus Mod /LPF Lactic Acid Level 1.1 mmol/L (0.4-2.0) White Blood Count 1.4 x10^3/uL (4.0-11.0) Red Blood Count 2.51 x10^6/uL (4.30-5.70) Hemoglobin 7.3 g/dL (13.0-17.5) Hematocrit 21.7 % (39.0-53.0) Mean Corpuscular Volume 87 fL (79-100) Mean Corpuscular Hemoglobin 29 pg (25-35) Mean Corpuscular Hemoglobin Concent 34 g/dL (31-37) Red Cell Distribution Width 13.8 % (11.5-14.5) Platelet Count 23 x10^3/uL (140-400) Neutrophils (%) (Auto) 23 % (31-73) Lymphocytes (%) (Auto) 38 % (24-48) Monocytes (%) (Auto) 38 % (0-9) Eosinophils (%) (Auto) 0 % (0-3) Basophils (%) (Auto) 1 % (0-3) Neutrophils # (Auto) 0.3 x10^3uL (1.8-7.7) Lymphocytes # (Auto) 0.5 x10^3/uL (1.0-4.8) Monocytes # (Auto) 0.5 x10^3/uL (0.0-1.1) Eosinophils # (Auto) 0.0 x10^3/uL (0.0-0.7) Basophils # (Auto) 0.0 x10^3/uL (0.0-0.2) Microbiology 08/25/18 Blood Culture - Preliminary, Resulted NO GROWTH AFTER 1 DAY Medications Current Medications Sodium Chloride 500 ml @ 500 mls/hr 1X ONCE IV Last administered on 08/25/18at 21:10; Start 08/25/18 at 20:00; Stop 08/25/18 at 20:59; Status DC Cefepime HCl (Maxipime) 2 gm Q8HRS IVP Last administered on 08/27/18at 05:54; Start 08/26/18 at 06:00 Vancomycin HCl (Vanco Per Pharmacy) 1 each PRN DAILY PRN MC SEE COMMENTS; Start 08/25/18 at 22:45; Stop 08/25/18 at 23:22; Status DC Cefepime HCl (Maxipime) 2 gm ONCE ONCE IVP Last administered on 08/25/18at 23:07 ; Start 08/25/18 at 23:00; Stop 08/25/18 at 23:01; Status DC Vancomycin HCl 2 gm/Sodium Chloride 500 ml @ 250 mls/hr 1X ONCE IV Last administered on 08/25/18at 23:00; Start 08/25/18 at 23:00; Stop 08/26/18 at 00:59; Status DC Sodium Chloride 1,000 ml @ 125 mls/hr Q8H IV Last administered on 08/26/18at 15: 00; Start 08/25/18 at 23:00; Stop 08/26/18 at 22:59; Status DC Acetaminophen (Tylenol) 650 mg PRN Q6HRS PRN PO FEVER > 100.5'F Last administered on 08/26/18 14:56; Start 08/25/18 at 23:00 Dronabinol (Marinol) 2.5 mg DAILY PO Last administered on 08/27/18 08:47; Start 08/26/18 at 09:00 Furosemide (Lasix) 20 mg DAILY PO Last administered on 08/27/18 08:47; Start 08/26/18 at 09:00 Guaifenesin (Mucinex) 600 mg BID PO Last administered on 08/27/18 08:47; Start 08/26/18 at 09:00 Isosorbide Mononitrate (Imdur) 15 mg DAILY PO Last administered on 08/27/18 08 :48; Start 08/26/18 at 09:00 Non-Formulary Medication (Fluticasone/ Salmeterol (Advair 500-50 Diskus)) 1 puff BID IH ; Start 08/26/18 at 09:00; Status UNV Gabapentin (Neurontin) 600 mg TID PO Last administered on 08/27/18 08:47; Start 08/26/18 at 09:00 Budesonide (Pulmicort) 0.5 mg RTBID NEB Last administered on 08/27/18 08:11; Start 08/26/18 at 08:00 Albuterol Sulfate (Ventolin Neb Soln) 2.5 mg RTQID NEB Last administered on 08:10; Start 08/26/18 at 08:00 Diphenhydramine HCl (Benadryl) 25 mg PRN Q6HRS PRN PO INSOMNIA; Start 08/26/18 at 01:15; Stop 08/26/18 at 01:22; Status DC Diphenhydramine HCl (Benadryl) 25 mg PRN QHS PRN PO INSOMNIA, MAY REPEAT X1 Last administered on 08/26/18 01:44; Start 08/26/18 at 01:30 Fluconazole (Diflucan) 100 mg DAILY PO Last administered on 08/27/18 08:47; Start 08/26/18 at 14:00 Acyclovir (Zovirax) 400 mg BID PO Last administered on 08/27/18 08:47; Start 08/26/18 at 21:00 Ketorolac Tromethamine (Toradol 30mg Vial) 30 mg 1X ONCE IV Last administered on 08/26/18at 15:48; Start 08/26/18 at 15:45; Stop 08/26/18 at 15:46; Status DC Diphenhydramine HCl (Benadryl) 25 mg 1X ONCE IVP Last administered on at 15:48; Start 08/26/18 at 15:45; Stop 08/26/18 at 15:46; Status DC Methylprednisolone Sodium Succinate (SOLU-Medrol 125MG VIAL) 125 mg 1X ONCE IV Last administered on 08/26/18at 15:48; Start 08/26/18 at 15:45; Stop 08/26/18 at 15:46; Status DC Sodium Chloride 1,000 ml @ 1,000 mls/hr 1X ONCE IV Last administered on at 16:27; Start 08/26/18 at 16:30; Stop 08/26/18 at 17:29; Status DC Active Scripts Active Reported Isosorbide Mononitrate Er (Isosorbide Mononitrate) 30 Mg Tab.er.24h 0.5 Tab PO DAILY Mucinex (Guaifenesin) 600 Mg Tablet.er 1 Tab PO BID Gabapentin 600 Mg Tablet 600 Mg PO TID Lasix (Furosemide) 20 Mg Tablet 1 Tab PO DAILY Advair 500-50 Diskus (Fluticasone/Salmeterol) 1 Each Disk.w.dev 1 Puff IH BID Marinol (Dronabinol) 2.5 Mg Capsule 2.5 Mg PO Doxycycline Hyclate 100 Mg Tablet. 1 Tab PO BID Vitals/I & O Vital Sign - Last 24 Hours 08/26/18 08/26/18 08/26/18 08/26/18 11:00 11:04 12:48 13:48 Temp 98.5 99.7 99.9 98.5 99.7 99.9 Pulse 84 100 116 Resp 18 16 16 B/P (MAP) 114/56 (75) 123/62 139/61 Pulse Ox 90 94 O2 Delivery Room Air Room Air 08/26/18 08/26/18 08/26/18 08/26/18 14:48 15:35 15:45 15:50 Temp 103.0 102.5 102.5 103.0 102.5 102.5 Pulse 106 105 108 Resp 16 B/P (MAP) 143/53 92/49 (63) 93/47 Pulse Ox 95 93 O2 Delivery Nasal Cannula Nasal Cannula O2 Flow Rate 4.0 4.0 08/26/18 08/26/18 08/26/18 08/26/18 16:45 16:50 16:54 17:21 Temp 101.5 101.5 101.6 101.5 101.5 101.6 Pulse 96 96 93 Resp B/P (MAP) 100/51 (67) 100/51 93/50 Pulse Ox 100 O2 Delivery Nasal Cannula Nasal Cannula O2 Flow Rate 4.0 4.0 08/26/18 08/26/18 08/26/18 08/26/18 17:58 18:09 19:15 19:46 Temp 100.7 100.6 100.7 100.6 Pulse 87 83 Resp B/P (MAP) 97/50 97/50 (66) Pulse Ox 99 95 O2 Delivery Nasal Cannula Nasal Cannula Nasal Cannula O2 Flow Rate 4.0 2.0 3.0 08/26/18 08/27/18 08/27/18 08/27/18 22:49 03:32 07:17 07:25 Temp 98.1 98.3 98.1 98.1 98.3 98.1 Pulse 74 58 68 Resp 18 B/P (MAP) 98/53 (68) 101/56 (71) 119/56 (77) Pulse Ox 95 99 96 O2 Delivery Nasal Cannula Nasal Cannula Nasal Cannula Nasal Cannula O2 Flow Rate 2.0 2.0 2.0 2.0 08/27/18 08/27/18 08:12 08:48 Pulse 68 B/P (MAP) 120/58 Pulse Ox 100 O2 Delivery Nasal Cannula O2 Flow Rate 2.0 Intake and Output 08/26/18 08/26/18 08/27/18 15:00 23:00 07:00 Intake Total 600 ml 464 ml 1500 ml Output Total 225 ml 100 ml 0 ml Balance 375 ml 364 ml 1500 ml CASTLE,NIAL K III DO Aug 27, 2018 10:29
[2018-08-27 10:58] VITALS: BP 118/57
--- NOTE | 2018-08-27 13:39 | PDOC ---
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 admitted w/ neutropenic fever, with transfusion reaction after red blood cells on Tuesday afternoon with fever to 103 that has since resolved Thrombocytopenia: Would transfuse for plt count less than 20,000 with fever, less than 10,000 spontaneously or less than 50,000 with bleeding, platelet transfusion given Tuesday for platelet count of 19 due to recent prior fever Anemia: Would transfuse for hemoglobin less than 7 Neutropenic fever: On broad-spectrum antibiotics with cefepime, urinalysis negative, chest x-ray without pneumonia, blood cultures NGTD, would continue antibiotics and avoid G-CSF due to AML AML: Pending clinical trial, can readdress goals of care when Dr. Santacruz returns on Tuesday Would continue acyclovir 800 bid and fluconazole 400 po qday prophylaxis, he was on Ceftin prophylaxis prior to admission toe slight ulceration: consulted wound care. Thank you kindly and please do not hesitate to call with questions. OBJECTIVE Vital Signs Vital Signs Date Time Temp Pulse Resp B/P (MAP) Pulse Ox O2 Delivery O2 Flow Rate FiO2 08/27/18 11:48 91 Room Air 08/27/18 10:58 97.9 69 18 118/57 (77) 98 Nasal Cannula 2.0 97.9 08/27/18 08:48 68 120/58 08/27/18 08:12 100 Nasal Cannula 2.0 08/27/18 07:25 Nasal Cannula 2.0 08/27/18 07:17 98.1 68 18 119/56 (77) 96 Nasal Cannula 2.0 98.1 08/27/18 03:32 98.3 58 18 101/56 (71) 99 Nasal Cannula 2.0 98.3 08/26/18 22:49 98.1 74 20 98/53 (68) 95 Nasal Cannula 2.0 98.1 08/26/18 19:46 95 Nasal Cannula 3.0 08/26/18 19:15 Nasal Cannula 2.0 08/26/18 18:09 100.6 83 22 97/50 (66) 99 Nasal Cannula 4.0 100.6 08/26/18 17:58 100.7 87 22 97/50 100.7 08/26/18 17:21 101.6 93 22 93/50 101.6 08/26/18 16:54 101.5 96 22 100/51 101.5 08/26/18 16:50 Nasal Cannula 4.0 08/26/18 16:45 101.5 96 22 100/51 (67) 100 Nasal Cannula 4.0 101.5 08/26/18 15:50 102.5 108 16 93/47 102.5 08/26/18 15:45 102.5 105 26 92/49 (63) 93 Nasal Cannula 4.0 102.5 08/26/18 15:35 95 Nasal Cannula 4.0 08/26/18 14:48 103.0 106 16 143/53 103.0 08/26/18 13:48 99.9 116 16 139/61 99.9 I & O Intake and Output 08/27/18 07:00 Intake Total 2564 ml Output Total 325 ml Balance 2239 ml Intake Oral 200 ml IV Total 1500 ml Blood Product IV Normal Saline Flush 864 ml Output Urine Total 325 ml COMMENT Lab Laboratory Tests Test 08/26/18 15:16 08/26/18 15:30 08/26/18 16:20 08/27/18 09:00 Glucose (Fingerstick) 116 mg/dL (70-99) Urine Collection Type Unknown Urine Color Yellow Urine Clarity Clear Urine pH 5.0 Urine Specific [place] 1.015 Urine Protein Negative mg/dL (NEG-TRACE) Urine Glucose (UA) Negative mg/dL (NEG) Urine Ketones (Stick) Negative mg/dL (NEG) Urine Blood Negative (NEG) Urine Nitrite Negative (NEG) Urine Bilirubin Negative (NEG) Urine Urobilinogen Dipstick 0.2 mg/dL (0.2 mg/dL) Urine Leukocyte Esterase Negative (NEG) Urine RBC 0 /HPF (0-2) Urine WBC 0 /HPF (0-4) Urine Squamous Epithelial Cells None /LPF Urine Bacteria 0 /HPF (0-FEW) Urine Mucus Mod /LPF Lactic Acid Level 1.1 mmol/L (0.4-2.0) White Blood Count 1.4 x10^3/uL (4.0-11.0) Red Blood Count 2.51 x10^6/uL (4.30-5.70) Hemoglobin 7.3 g/dL (13.0-17.5) Hematocrit 21.7 % (39.0-53.0) Mean Corpuscular Volume 87 fL (79-100) Mean Corpuscular Hemoglobin 29 pg (25-35) Mean Corpuscular Hemoglobin Concent 34 g/dL (31-37) Red Cell Distribution Width 13.8 % (11.5-14.5) Platelet Count 23 x10^3/uL (140-400) Neutrophils (%) (Auto) 23 % (31-73) Lymphocytes (%) (Auto) 38 % (24-48) Monocytes (%) (Auto) 38 % (0-9) Eosinophils (%) (Auto) 0 % (0-3) Basophils (%) (Auto) 1 % (0-3) Neutrophils # (Auto) 0.3 x10^3uL (1.8-7.7) Lymphocytes # (Auto) 0.5 x10^3/uL (1.0-4.8) Monocytes # (Auto) 0.5 x10^3/uL (0.0-1.1) Eosinophils # (Auto) 0.0 x10^3/uL (0.0-0.7) Basophils # (Auto) 0.0 x10^3/uL (0.0-0.2) MINNIE ENNIS MD Aug 27, 2018 13:39
[2018-08-27 14:12] VITALS: BP 124/58
[2018-08-27 19:00] VITALS: BP 137/63
[2018-08-27] MEDS ORDERED: HYDROcodone/APAP 5/325MG 1 TAB TABLET PO PRN ×2 (20:15)
[2018-08-27] MEDS: diphenhydrAMINE HCL 25 MG CAPSULE PO PRN (20:52)
[2018-08-27 22:45] VITALS: BP 113/53
[2018-08-27] MEDS: ACETAMINOPHEN 325 MG TABLET. PO PRN (23:01)
[2018-08-28] VITALS (8 sets, daily range): BP systolic 105–188; BP diastolic 49–81
[2018-08-28] MEDS: CEFEPIME HCL IV Push 2 GM VIAL. IVP SCH (05:42)
[2018-08-28 07:08] LABS: BASO % 0 % (0-3); EOS % 0 % (0-3); HEMATOCRIT 21.7 % (39.0-53.0); HEMOGLOBIN 7.3 g/dL (13.0-17.5); LYMPH # 0.4 x10^3/uL (1.0-4.8); LYMPH % 30 % (24-48); MEAN CORPUSCULAR HEMOGLOBIN 29 pg (25-35); MEAN CORPUSCULAR HGB CONC 34 g/dL (31-37); MEAN CORPUSCULAR VOLUME 88 fL (79-100); MONO # 0.6 x10^3/uL (0.0-1.1); MONO % 44 % (0-9); NEUT # 0.4 x10^3uL (1.8-7.7); NEUT % 26 % (31-73); RED BLOOD COUNT 2.48 x10^6/uL (4.30-5.70); RED CELL DISTRIBUTION WIDTH 13.7 % (11.5-14.5)
[2018-08-28 07:16] LABS: PLATELET COUNT 15 x10^3/uL (140-400); WHITE BLOOD COUNT 1.4 x10^3/uL (4.0-11.0)
[2018-08-28 07:26] LABS: ALBUMIN 2.7 g/dL (3.4-5.0); ALBUMIN/GLOBULIN RATIO 0.8 (1.0-1.7); CALCIUM 7.9 mg/dL (8.5-10.1); CREATININE 0.8 mg/dL (0.7-1.3); GFR 94.5; POTASSIUM 4.4 mmol/L (3.5-5.1); TOTAL BILIRUBIN 0.3 mg/dL (0.2-1.0); TOTAL PROTEIN 6.2 g/dL (6.4-8.2)
[2018-08-28] MEDS: ALBUTEROL SULFATE 2.5 MG/3 ML NEBU. NEB SCH ×2 (07:51→12:08)
[2018-08-28] MEDS: BUDESONIDE 0.5 MG/2 ML NEBU. NEB SCH (07:51)
[2018-08-28 08:35] LABS: % LYMPHS 21 % (24-48); % MONOS 3 % (0-10); % MYELOS 1 % (0-0); % SEGS 10 % (35-66)
[2018-08-28 08:36] LABS: PLT ESTIMATE DECREASED (ADEQUATE)
[2018-08-28 08:37] LABS: % BLASTS 65 % (0-0)
[2018-08-28] MEDS ORDERED: ONDANSETRON PF 4 MG/2 ML VIAL. IV PRN (09:00)
[2018-08-28] MEDS ORDERED: FLUCONAZOLE 100 MG TABLET. PO SCH (09:00)
[2018-08-28] MEDS ORDERED: VANCOMYCIN PER PHARMACY MC PRN (09:45)
--- NOTE | 2018-08-28 09:56 | NUR ---
SS following up with discharge planning. SS received notification from pt's RN that pt will transfer to . SS contacted transfer center and verified that pt has been accepted for transfer. metal hanging supervisor at reported that she is currently waiting on bed assignment and will contact SS when bed has been assigned. SS will arrange transportation once bed assignment is made. Pt's RN notified.
[2018-08-28] MEDS: GABAPENTIN 300 MG CAPSULE. PO SCH (09:59)
[2018-08-28] MEDS: DRONABINOL 2.5 MG CAPSULE. PO SCH (09:59)
[2018-08-28] MEDS: ACYCLOVIR 200 MG CAPSULE. PO SCH (09:59)
[2018-08-28] MEDS: ISOSORBIDE MONONITRATE ER 30 MG TAB.ER.24H PO SCH (10:00)
[2018-08-28] MEDS: FUROSEMIDE 20 MG TABLET PO SCH (10:01)
--- NOTE | 2018-08-28 10:03 | PDOC ---
PROGRESS NOTES Subjective Subjective HPI - f/u of AML ROS - feels nauseous, has fever, weak Objective Objective Vital Signs Date Time Temp Pulse Resp B/P (MAP) Pulse Ox O2 Delivery O2 Flow Rate FiO2 08/28/18 07:52 95 Nasal Cannula 1.0 08/28/18 07:39 99.3 111 20 188/81 (116) 99.3 Intake and Output 08/28/18 06:59 Intake Total 1800 ml Output Total 825 ml Balance 975 ml Intake Oral 1800 ml Output Urine Total 825 ml Physical Exam Heart: Normal S1, Normal S2 General: Alert, Oriented X3 Lungs: Clear to auscultation Neuro: Normal speech Psych/Mental Status: Mental status NL Assessment Assessment Assessment and Plan: 1. 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 I discussed with Dr. Gray at [facility] regarding leukemia management. Dr. Gray recommended chemotherapy for leukemia to start this week and hence we will transfer the patient to [facility] today in preparation for chemotherapy with Mylotarg this week. 2. He feels very weak and short of breath and he also has nausea. I suspect that he has sepsis and I will consult infectious diseases. I discussed with Dr. Eyad Lyon. 3. Anemia. Hemoglobin is worse at 7.3. Proceed with 1 unit of platelet transfusion, PRBC transfusion. 4. Thrombocytopenia worse at 15,000. In view of suspected sepsis I will proceed with one platelet transfusion. I discussed with registered nurse. Would continue acyclovir 800 bid and fluconazole 400 po qday prophylaxis, he was on Ceftin prophylaxis prior to admission Comment Review of Relevant I have reviewed the following items kirsten (where applicable) has been applied. Labs Laboratory Tests Test 08/26/18 15:16 08/26/18 15:30 08/26/18 16:20 08/27/18 09:00 Glucose (Fingerstick) 116 mg/dL (70-99) Urine Collection Type Unknown Urine Color Yellow Urine Clarity Clear Urine pH 5.0 Urine Specific [place] 1.015 Urine Protein Negative mg/dL (NEG-TRACE) Urine Glucose (UA) Negative mg/dL (NEG) Urine Ketones (Stick) Negative mg/dL (NEG) Urine Blood Negative (NEG) Urine Nitrite Negative (NEG) Urine Bilirubin Negative (NEG) Urine Urobilinogen Dipstick 0.2 mg/dL (0.2 mg/dL) Urine Leukocyte Esterase Negative (NEG) Urine RBC 0 /HPF (0-2) Urine WBC 0 /HPF (0-4) Urine Squamous Epithelial Cells None /LPF Urine Bacteria 0 /HPF (0-FEW) Urine Mucus Mod /LPF Lactic Acid Level 1.1 mmol/L (0.4-2.0) White Blood Count 1.4 x10^3/uL (4.0-11.0) Red Blood Count 2.51 x10^6/uL (4.30-5.70) Hemoglobin 7.3 g/dL (13.0-17.5) Hematocrit 21.7 % (39.0-53.0) Mean Corpuscular Volume 87 fL (79-100) Mean Corpuscular Hemoglobin 29 pg (25-35) Mean Corpuscular Hemoglobin Concent 34 g/dL (31-37) Red Cell Distribution Width 13.8 % (11.5-14.5) Platelet Count 23 x10^3/uL (140-400) Neutrophils (%) (Auto) 23 % (31-73) Lymphocytes (%) (Auto) 38 % (24-48) Monocytes (%) (Auto) 38 % (0-9) Eosinophils (%) (Auto) 0 % (0-3) Basophils (%) (Auto) 1 % (0-3) Neutrophils # (Auto) 0.3 x10^3uL (1.8-7.7) Lymphocytes # (Auto) 0.5 x10^3/uL (1.0-4.8) Monocytes # (Auto) 0.5 x10^3/uL (0.0-1.1) Eosinophils # (Auto) 0.0 x10^3/uL (0.0-0.7) Basophils # (Auto) 0.0 x10^3/uL (0.0-0.2) Test 08/28/18 06:45 White Blood Count 1.4 x10^3/uL (4.0-11.0) Red Blood Count 2.48 x10^6/uL (4.30-5.70) Hemoglobin 7.3 g/dL (13.0-17.5) Hematocrit 21.7 % (39.0-53.0) Mean Corpuscular Volume 88 fL (79-100) Mean Corpuscular Hemoglobin 29 pg (25-35) Mean Corpuscular Hemoglobin Concent 34 g/dL (31-37) Red Cell Distribution Width 13.7 % (11.5-14.5) Platelet Count 15 x10^3/uL (140-400) Neutrophils (%) (Auto) 26 % (31-73) Lymphocytes (%) (Auto) 30 % (24-48) Monocytes (%) (Auto) 44 % (0-9) Eosinophils (%) (Auto) 0 % (0-3) Basophils (%) (Auto) 0 % (0-3) Neutrophils # (Auto) 0.4 x10^3uL (1.8-7.7) Lymphocytes # (Auto) 0.4 x10^3/uL (1.0-4.8) Monocytes # (Auto) 0.6 x10^3/uL (0.0-1.1) Eosinophils # (Auto) 0.0 x10^3/uL (0.0-0.7) Basophils # (Auto) 0.0 x10^3/uL (0.0-0.2) Sodium Level 144 mmol/L (136-145) Potassium Level 4.4 mmol/L (3.5-5.1) Chloride Level 107 mmol/L (98-107) Carbon Dioxide Level 27 mmol/L (21-32) Anion Gap 10 (6-14) Blood Urea Nitrogen 19 mg/dL (8-26) Creatinine 0.8 mg/dL (0.7-1.3) Estimated GFR (Cockcroft-Gault) 94.5 BUN/Creatinine Ratio 24 (6-20) Glucose Level 142 mg/dL (70-99) Calcium Level 7.9 mg/dL (8.5-10.1) Total Bilirubin 0.3 mg/dL (0.2-1.0) Aspartate Amino Transf (AST/SGOT) 36 U/L (15-37) Alanine Aminotransferase (ALT/SGPT) 71 U/L (16-63) Alkaline Phosphatase 78 U/L (46-116) Total Protein 6.2 g/dL (6.4-8.2) Albumin 2.7 g/dL (3.4-5.0) Albumin/Globulin Ratio 0.8 (1.0-1.7) Laboratory Tests Test 08/28/18 06:45 White Blood Count 1.4 x10^3/uL (4.0-11.0) Red Blood Count 2.48 x10^6/uL (4.30-5.70) Hemoglobin 7.3 g/dL (13.0-17.5) Hematocrit 21.7 % (39.0-53.0) Mean Corpuscular Volume 88 fL (79-100) Mean Corpuscular Hemoglobin 29 pg (25-35) Mean Corpuscular Hemoglobin Concent 34 g/dL (31-37) Red Cell Distribution Width 13.7 % (11.5-14.5) Platelet Count 15 x10^3/uL (140-400) Neutrophils (%) (Auto) 26 % (31-73) Lymphocytes (%) (Auto) 30 % (24-48) Monocytes (%) (Auto) 44 % (0-9) Eosinophils (%) (Auto) 0 % (0-3) Basophils (%) (Auto) 0 % (0-3) Neutrophils # (Auto) 0.4 x10^3uL (1.8-7.7) Lymphocytes # (Auto) 0.4 x10^3/uL (1.0-4.8) Monocytes # (Auto) 0.6 x10^3/uL (0.0-1.1) Eosinophils # (Auto) 0.0 x10^3/uL (0.0-0.7) Basophils # (Auto) 0.0 x10^3/uL (0.0-0.2) Sodium Level 144 mmol/L (136-145) Potassium Level 4.4 mmol/L (3.5-5.1) Chloride Level 107 mmol/L (98-107) Carbon Dioxide Level 27 mmol/L (21-32) Anion Gap 10 (6-14) Blood Urea Nitrogen 19 mg/dL (8-26) Creatinine 0.8 mg/dL (0.7-1.3) Estimated GFR (Cockcroft-Gault) 94.5 BUN/Creatinine Ratio 24 (6-20) Glucose Level 142 mg/dL (70-99) Calcium Level 7.9 mg/dL (8.5-10.1) Total Bilirubin 0.3 mg/dL (0.2-1.0) Aspartate Amino Transf (AST/SGOT) 36 U/L (15-37) Alanine Aminotransferase (ALT/SGPT) 71 U/L (16-63) Alkaline Phosphatase 78 U/L (46-116) Total Protein 6.2 g/dL (6.4-8.2) Albumin 2.7 g/dL (3.4-5.0) Albumin/Globulin Ratio 0.8 (1.0-1.7) Microbiology 08/26/18 Blood Culture - Preliminary, Resulted NO GROWTH AFTER 1 DAY Medications Current Medications Sodium Chloride 500 ml @ 500 mls/hr 1X ONCE IV Last administered on 08/25/18at 21:10; Start 08/25/18 at 20:00; Stop 08/25/18 at 20:59; Status DC Cefepime HCl (Maxipime) 2 gm Q8HRS IVP Last administered on 08/28/18at 05:42; Start 08/26/18 at 06:00 Vancomycin HCl (Vanco Per Pharmacy) 1 each PRN DAILY PRN MC SEE COMMENTS; Start 08/25/18 at 22:45; Stop 08/25/18 at 23:22; Status DC Cefepime HCl (Maxipime) 2 gm ONCE ONCE IVP Last administered on 08/25/18at 23:07 ; Start 08/25/18 at 23:00; Stop 08/25/18 at 23:01; Status DC Vancomycin HCl 2 gm/Sodium Chloride 500 ml @ 250 mls/hr 1X ONCE IV Last administered on 08/25/18at 23:00; Start 08/25/18 at 23:00; Stop 08/26/18 at 00:59; Status DC Sodium Chloride 1,000 ml @ 125 mls/hr Q8H IV Last administered on 08/26/18at 15: 00; Start 08/25/18 at 23:00; Stop 08/26/18 at 22:59; Status DC Acetaminophen (Tylenol) 650 mg PRN Q6HRS PRN PO FEVER > 100.5'F Last administered on 08/27/18at 23:01; Start 08/25/18 at 23:00 Dronabinol (Marinol) 2.5 mg DAILY PO Last administered on 08/27/18at 08:47; Start 08/26/18 at 09:00 Furosemide (Lasix) 20 mg DAILY PO Last administered on 08/27/18 08:47; Start 08/26/18 at 09:00 Guaifenesin (Mucinex) 600 mg BID PO Last administered on 08/27/18 20:52; Start 08/26/18 at 09:00 Isosorbide Mononitrate (Imdur) 15 mg DAILY PO Last administered on 08/27/18 08 :48; Start 08/26/18 at 09:00 Non-Formulary Medication (Fluticasone/ Salmeterol (Advair 500-50 Diskus)) 1 puff BID IH ; Start 08/26/18 at 09:00; Status UNV Gabapentin (Neurontin) 600 mg TID PO Last administered on 08/27/18 20:53; Start 08/26/18 at 09:00 Budesonide (Pulmicort) 0.5 mg RTBID NEB Last administered on 08/28/18 07:51; Start 08/26/18 at 08:00 Albuterol Sulfate (Ventolin Neb Soln) 2.5 mg RTQID NEB Last administered on 07:51; Start 08/26/18 at 08:00 Diphenhydramine HCl (Benadryl) 25 mg PRN Q6HRS PRN PO INSOMNIA; Start 08/26/18 at 01:15; Stop 08/26/18 at 01:22; Status DC Diphenhydramine HCl (Benadryl) 25 mg PRN QHS PRN PO INSOMNIA, MAY REPEAT X1 Last administered on 08/27/18 20:52; Start 08/26/18 at 01:30 Fluconazole (Diflucan) 100 mg DAILY PO Last administered on 08/27/18 08:47; Start 08/26/18 at 14:00; Stop 08/27/18 at 12:15; Status DC Acyclovir (Zovirax) 400 mg BID PO Last administered on 08/27/18 08:47; Start 08/26/18 at 21:00; Stop 08/27/18 at 12:15; Status DC Ketorolac Tromethamine (Toradol 30mg Vial) 30 mg 1X ONCE IV Last administered on 08/26/18 15:48; Start 08/26/18 at 15:45; Stop 08/26/18 at 15:46; Status DC Diphenhydramine HCl (Benadryl) 25 mg 1X ONCE IVP Last administered on at 15:48; Start 08/26/18 at 15:45; Stop 08/26/18 at 15:46; Status DC Methylprednisolone Sodium Succinate (SOLU-Medrol 125MG VIAL) 125 mg 1X ONCE IV Last administered on 08/26/18at 15:48; Start 08/26/18 at 15:45; Stop 08/26/18 at 15:46; Status DC Sodium Chloride 1,000 ml @ 1,000 mls/hr 1X ONCE IV Last administered on at 16:27; Start 08/26/18 at 16:30; Stop 08/26/18 at 17:29; Status DC Acyclovir (Zovirax) 800 mg BID PO Last administered on 08/27/18at 20:52; Start 08/27/18 at 21:00 Fluconazole (Diflucan) 400 mg DAILY PO ; Start 08/28/18 at 09:00 Acetaminophen/ Hydrocodone Bitart (Lortab 5/325) 1 tab PRN Q4HRS PRN PO MILD TO MODERATE PAIN Last administered on 08/27/18at 20:52; Start 08/27/18 at 20:15 Acetaminophen/ Hydrocodone Bitart (Lortab 5/325) 2 tab PRN Q4HRS PRN PO SEVERE PAIN; Start 08/27/18 at 20:15 Ondansetron HCl (Zofran) 4 mg PRN Q6HRS PRN IV NAUSEA/VOMITING; Start 08/28/18 at 09:00 Vancomycin HCl (Vanco Per Pharmacy) 1 each PRN DAILY PRN MC SEE COMMENTS; Start 08/28/18 at 09:45 Active Scripts Active Reported Isosorbide Mononitrate Er (Isosorbide Mononitrate) 30 Mg Tab.er.24h 0.5 Tab PO DAILY Mucinex (Guaifenesin) 600 Mg Tablet.er 1 Tab PO BID Gabapentin 600 Mg Tablet 600 Mg PO TID Lasix (Furosemide) 20 Mg Tablet 1 Tab PO DAILY Advair 500-50 Diskus (Fluticasone/Salmeterol) 1 Each Disk.w.dev 1 Puff IH BID Marinol (Dronabinol) 2.5 Mg Capsule 2.5 Mg PO Doxycycline Hyclate 100 Mg Tablet.dr 1 Tab PO BID Vitals/I & O Vital Sign - Last 24 Hours 08/27/18 08/27/18 08/27/18 08/27/18 10:58 11:48 14:12 19:00 Temp 97.9 98.1 99.1 97.9 98.1 99.1 Pulse 69 90 95 Resp 18 20 20 B/P (MAP) 118/57 (77) 124/58 (80) 137/63 (87) Pulse Ox 98 91 97 96 O2 Delivery Nasal Cannula Room Air Nasal Cannula Nasal Cannula O2 Flow Rate 2.0 2.0 2.0 08/27/18 08/27/18 08/27/18 08/27/18 19:30 19:50 20:52 22:45 Temp 100.1 100.1 Pulse 98 Resp 20 22 B/P (MAP) 113/53 (73) Pulse Ox 96 92 O2 Delivery Nasal Cannula Nasal Cannula Nasal Cannula Nasal Cannula O2 Flow Rate 1.0 1.0 1.0 2.0 08/28/18 08/28/18 08/28/18 08/28/18 00:22 03:05 07:39 07:52 Temp 99.0 98.8 99.3 99.0 98.8 99.3 Pulse 87 111 Resp 22 20 B/P (MAP) 105/49 (67) 188/81 (116) Pulse Ox 92 96 95 O2 Delivery Nasal Cannula Nasal Cannula Nasal Cannula O2 Flow Rate 2.0 2.0 1.0 Intake and Output 08/27/18 08/27/18 08/28/18 14:59 22:59 06:59 Intake Total 700 ml 900 ml 200 ml Output Total 325 ml 200 ml 300 ml Balance 375 ml 700 ml -100 ml BIJAL POOL MD Aug 28, 2018 10:03
--- NOTE | 2018-08-28 10:11 | PDOC ---
Infectious Disease Note Vital Sign Vital Signs Vital Signs Date Time Temp Pulse Resp B/P (MAP) Pulse Ox O2 Delivery O2 Flow Rate FiO2 08/28/18 07:52 95 Nasal Cannula 1.0 08/28/18 07:39 99.3 111 20 188/81 (116) 99.3 Labs Lab Laboratory Tests Test 08/28/18 06:45 White Blood Count 1.4 x10^3/uL (4.0-11.0) Red Blood Count 2.48 x10^6/uL (4.30-5.70) Hemoglobin 7.3 g/dL (13.0-17.5) Hematocrit 21.7 % (39.0-53.0) Mean Corpuscular Volume 88 fL (79-100) Mean Corpuscular Hemoglobin 29 pg (25-35) Mean Corpuscular Hemoglobin Concent 34 g/dL (31-37) Red Cell Distribution Width 13.7 % (11.5-14.5) Platelet Count 15 x10^3/uL (140-400) Neutrophils (%) (Auto) 26 % (31-73) Lymphocytes (%) (Auto) 30 % (24-48) Monocytes (%) (Auto) 44 % (0-9) Eosinophils (%) (Auto) 0 % (0-3) Basophils (%) (Auto) 0 % (0-3) Neutrophils # (Auto) 0.4 x10^3uL (1.8-7.7) Lymphocytes # (Auto) 0.4 x10^3/uL (1.0-4.8) Monocytes # (Auto) 0.6 x10^3/uL (0.0-1.1) Eosinophils # (Auto) 0.0 x10^3/uL (0.0-0.7) Basophils # (Auto) 0.0 x10^3/uL (0.0-0.2) Sodium Level 144 mmol/L (136-145) Potassium Level 4.4 mmol/L (3.5-5.1) Chloride Level 107 mmol/L (98-107) Carbon Dioxide Level 27 mmol/L (21-32) Anion Gap 10 (6-14) Blood Urea Nitrogen 19 mg/dL (8-26) Creatinine 0.8 mg/dL (0.7-1.3) Estimated GFR (Cockcroft-Gault) 94.5 BUN/Creatinine Ratio 24 (6-20) Glucose Level 142 mg/dL (70-99) Calcium Level 7.9 mg/dL (8.5-10.1) Total Bilirubin 0.3 mg/dL (0.2-1.0) Aspartate Amino Transf (AST/SGOT) 36 U/L (15-37) Alanine Aminotransferase (ALT/SGPT) 71 U/L (16-63) Alkaline Phosphatase 78 U/L (46-116) Total Protein 6.2 g/dL (6.4-8.2) Albumin 2.7 g/dL (3.4-5.0) Albumin/Globulin Ratio 0.8 (1.0-1.7) Micro Microbiology 08/26/18 Blood Culture - Preliminary, Resulted NO GROWTH AFTER 1 DAY Objective Assessment Fever - ? infection vs Blast crisis +/- transfusion Pancytopenia -states has been on Ceftin since October 2017 AML with blast crisis Levofloxacin allergy - sever rash Tinea/Onychomycosis Constipation [place] of toes vs. ? emboli - no other stigmata seen Plan Plan of Care D/c Cefepime Add meropenem with Ceftin exposure Add Vanc Doxy for atypical Change Fluconazole to Micafungin F/u cults F/u labs - hold additional lab/micro eval given transfer to today D/w nursing Thank you # [phone] DINA SOLIS MD Aug 28, 2018 10:11
[2018-08-28 10:56] LABS: % BANDS 18 % (0-9); % BLASTS 36 % (0-0); % LYMPHS 18 % (24-48); % METAS 2 % (0-0); % MONOS 2 % (0-10); % SEGS 24 % (35-66); PLT ESTIMATE DECREASED (ADEQUATE)
[2018-08-28] MEDS: diphenhydrAMINE HCL 25 MG CAPSULE PO PRN (10:56)
[2018-08-28] MEDS: ACETAMINOPHEN 325 MG TABLET. PO PRN (10:56)
[2018-08-28] MEDS ORDERED: MICAFUNGIN 100 MG in IV DEXTROSE 5% 100ML 100 ML IV SCH (11:00)
[2018-08-28] MEDS ORDERED: MEROPENEM 1 GM in IV NORMAL SALINE 100ML 100 ML IV SCH (11:00)
[2018-08-28] MEDS ORDERED: DOXYCYCLINE HYCLATE 100 MG TABLET PO SCH (11:00)
--- NOTE | 2018-08-28 11:06 | PDOC ---
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 Thrombocytopenia History of AML History of Raynauds Depression? 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 He has not had chemotherapy in 3 months We are following CBCs Pt is resting comfortably in bed, mild distress Discussed with RN and family at bedside He had a blood transfusion reaction yesterday, RR called D/c Cefepime Add meropenem with Ceftin exposure Add Vanc Doxy for atypical Change Fluconazole to Micafungin F/u cults TRANSFER TO [facility] today DNR STATUS AGREED TODAY Vitals Vitals Vital Signs Date Time Temp Pulse Resp B/P (MAP) Pulse Ox O2 Delivery O2 Flow Rate FiO2 08/28/18 10:54 101.0 102 20 179/78 101.0 08/28/18 10:43 92 Nasal Cannula 2.0 Physical Exam General: Alert, Oriented X3 Heart: Normal S1, Normal S2 Lungs: Clear Abdomen: Normal bowel sounds, Soft, No tenderness Extremities: No clubbing, No cyanosis Skin: No rashes Labs LABS No comparison available. Clinical data indication: Fever. FINDINGS: Single upright portable exam performed. Heart and mediastinal contours are within normal levels. Right-sided port in place. Lung volumes are low, limiting evaluation. There is some prominent perihilar linear markings. No consolidation or pleural effusion. No pneumothorax. IMPRESSION: 1. No evidence of focal pneumonia. 2. Prominent perihilar linear markings could be related to acute or chronic bronchial inflammatory process or atelectasis. Electronically signed by: Gokul Mondragon MD (08/26/2018 1:26 AM) [facility] Laboratory Tests Test 08/28/18 06:45 White Blood Count 1.4 x10^3/uL (4.0-11.0) Red Blood Count 2.48 x10^6/uL (4.30-5.70) Hemoglobin 7.3 g/dL (13.0-17.5) Hematocrit 21.7 % (39.0-53.0) Mean Corpuscular Volume 88 fL (79-100) Mean Corpuscular Hemoglobin 29 pg (25-35) Mean Corpuscular Hemoglobin Concent 34 g/dL (31-37) Red Cell Distribution Width 13.7 % (11.5-14.5) Platelet Count 15 x10^3/uL (140-400) Neutrophils (%) (Auto) 26 % (31-73) Lymphocytes (%) (Auto) 30 % (24-48) Monocytes (%) (Auto) 44 % (0-9) Eosinophils (%) (Auto) 0 % (0-3) Basophils (%) (Auto) 0 % (0-3) Neutrophils # (Auto) 0.4 x10^3uL (1.8-7.7) Lymphocytes # (Auto) 0.4 x10^3/uL (1.0-4.8) Monocytes # (Auto) 0.6 x10^3/uL (0.0-1.1) Eosinophils # (Auto) 0.0 x10^3/uL (0.0-0.7) Basophils # (Auto) 0.0 x10^3/uL (0.0-0.2) Segmented Neutrophils % 24 % (35-66) Band Neutrophils % 18 % (0-9) Lymphocytes % 18 % (24-48) Monocytes % 2 % (0-10) Metamyelocytes % 2 % (0-0) Blast Cells % (Manual) 36 % (0-0) Platelet Estimate Decreased (ADEQUATE) Sodium Level 144 mmol/L (136-145) Potassium Level 4.4 mmol/L (3.5-5.1) Chloride Level 107 mmol/L (98-107) Carbon Dioxide Level 27 mmol/L (21-32) Anion Gap 10 (6-14) Blood Urea Nitrogen 19 mg/dL (8-26) Creatinine 0.8 mg/dL (0.7-1.3) Estimated GFR (Cockcroft-Gault) 94.5 BUN/Creatinine Ratio 24 (6-20) Glucose Level 142 mg/dL (70-99) Calcium Level 7.9 mg/dL (8.5-10.1) Total Bilirubin 0.3 mg/dL (0.2-1.0) Aspartate Amino Transf (AST/SGOT) 36 U/L (15-37) Alanine Aminotransferase (ALT/SGPT) 71 U/L (16-63) Alkaline Phosphatase 78 U/L (46-116) Total Protein 6.2 g/dL (6.4-8.2) Albumin 2.7 g/dL (3.4-5.0) Albumin/Globulin Ratio 0.8 (1.0-1.7) Comment Review of Relevant I have reviewed the following items kirsten (where applicable) has been applied. Labs Laboratory Tests Test 08/26/18 15:16 08/26/18 15:30 08/26/18 16:20 08/27/18 09:00 Glucose (Fingerstick) 116 mg/dL (70-99) Urine Collection Type Unknown Urine Color Yellow Urine Clarity Clear Urine pH 5.0 Urine Specific [place] 1.015 Urine Protein Negative mg/dL (NEG-TRACE) Urine Glucose (UA) Negative mg/dL (NEG) Urine Ketones (Stick) Negative mg/dL (NEG) Urine Blood Negative (NEG) Urine Nitrite Negative (NEG) Urine Bilirubin Negative (NEG) Urine Urobilinogen Dipstick 0.2 mg/dL (0.2 mg/dL) Urine Leukocyte Esterase Negative (NEG) Urine RBC 0 /HPF (0-2) Urine WBC 0 /HPF (0-4) Urine Squamous Epithelial Cells None /LPF Urine Bacteria 0 /HPF (0-FEW) Urine Mucus Mod /LPF Lactic Acid Level 1.1 mmol/L (0.4-2.0) White Blood Count 1.4 x10^3/uL (4.0-11.0) Red Blood Count 2.51 x10^6/uL (4.30-5.70) Hemoglobin 7.3 g/dL (13.0-17.5) Hematocrit 21.7 % (39.0-53.0) Mean Corpuscular Volume 87 fL (79-100) Mean Corpuscular Hemoglobin 29 pg (25-35) Mean Corpuscular Hemoglobin Concent 34 g/dL (31-37) Red Cell Distribution Width 13.8 % (11.5-14.5) Platelet Count 23 x10^3/uL (140-400) Neutrophils (%) (Auto) 23 % (31-73) Lymphocytes (%) (Auto) 38 % (24-48) Monocytes (%) (Auto) 38 % (0-9) Eosinophils (%) (Auto) 0 % (0-3) Basophils (%) (Auto) 1 % (0-3) Neutrophils # (Auto) 0.3 x10^3uL (1.8-7.7) Lymphocytes # (Auto) 0.5 x10^3/uL (1.0-4.8) Monocytes # (Auto) 0.5 x10^3/uL (0.0-1.1) Eosinophils # (Auto) 0.0 x10^3/uL (0.0-0.7) Basophils # (Auto) 0.0 x10^3/uL (0.0-0.2) Test 08/28/18 06:45 White Blood Count 1.4 x10^3/uL (4.0-11.0) Red Blood Count 2.48 x10^6/uL (4.30-5.70) Hemoglobin 7.3 g/dL (13.0-17.5) Hematocrit 21.7 % (39.0-53.0) Mean Corpuscular Volume 88 fL (79-100) Mean Corpuscular Hemoglobin 29 pg (25-35) Mean Corpuscular Hemoglobin Concent 34 g/dL (31-37) Red Cell Distribution Width 13.7 % (11.5-14.5) Platelet Count 15 x10^3/uL (140-400) Neutrophils (%) (Auto) 26 % (31-73) Lymphocytes (%) (Auto) 30 % (24-48) Monocytes (%) (Auto) 44 % (0-9) Eosinophils (%) (Auto) 0 % (0-3) Basophils (%) (Auto) 0 % (0-3) Neutrophils # (Auto) 0.4 x10^3uL (1.8-7.7) Lymphocytes # (Auto) 0.4 x10^3/uL (1.0-4.8) Monocytes # (Auto) 0.6 x10^3/uL (0.0-1.1) Eosinophils # (Auto) 0.0 x10^3/uL (0.0-0.7) Basophils # (Auto) 0.0 x10^3/uL (0.0-0.2) Segmented Neutrophils % 24 % (35-66) Band Neutrophils % 18 % (0-9) Lymphocytes % 18 % (24-48) Monocytes % 2 % (0-10) Metamyelocytes % 2 % (0-0) Blast Cells % (Manual) 36 % (0-0) Platelet Estimate Decreased (ADEQUATE) Sodium Level 144 mmol/L (136-145) Potassium Level 4.4 mmol/L (3.5-5.1) Chloride Level 107 mmol/L (98-107) Carbon Dioxide Level 27 mmol/L (21-32) Anion Gap 10 (6-14) Blood Urea Nitrogen 19 mg/dL (8-26) Creatinine 0.8 mg/dL (0.7-1.3) Estimated GFR (Cockcroft-Gault) 94.5 BUN/Creatinine Ratio 24 (6-20) Glucose Level 142 mg/dL (70-99) Calcium Level 7.9 mg/dL (8.5-10.1) Total Bilirubin 0.3 mg/dL (0.2-1.0) Aspartate Amino Transf (AST/SGOT) 36 U/L (15-37) Alanine Aminotransferase (ALT/SGPT) 71 U/L (16-63) Alkaline Phosphatase 78 U/L (46-116) Total Protein 6.2 g/dL (6.4-8.2) Albumin 2.7 g/dL (3.4-5.0) Albumin/Globulin Ratio 0.8 (1.0-1.7) Laboratory Tests Test 08/28/18 06:45 White Blood Count 1.4 x10^3/uL (4.0-11.0) Red Blood Count 2.48 x10^6/uL (4.30-5.70) Hemoglobin 7.3 g/dL (13.0-17.5) Hematocrit 21.7 % (39.0-53.0) Mean Corpuscular Volume 88 fL (79-100) Mean Corpuscular Hemoglobin 29 pg (25-35) Mean Corpuscular Hemoglobin Concent 34 g/dL (31-37) Red Cell Distribution Width 13.7 % (11.5-14.5) Platelet Count 15 x10^3/uL (140-400) Neutrophils (%) (Auto) 26 % (31-73) Lymphocytes (%) (Auto) 30 % (24-48) Monocytes (%) (Auto) 44 % (0-9) Eosinophils (%) (Auto) 0 % (0-3) Basophils (%) (Auto) 0 % (0-3) Neutrophils # (Auto) 0.4 x10^3uL (1.8-7.7) Lymphocytes # (Auto) 0.4 x10^3/uL (1.0-4.8) Monocytes # (Auto) 0.6 x10^3/uL (0.0-1.1) Eosinophils # (Auto) 0.0 x10^3/uL (0.0-0.7) Basophils # (Auto) 0.0 x10^3/uL (0.0-0.2) Segmented Neutrophils % 24 % (35-66) Band Neutrophils % 18 % (0-9) Lymphocytes % 18 % (24-48) Monocytes % 2 % (0-10) Metamyelocytes % 2 % (0-0) Blast Cells % (Manual) 36 % (0-0) Platelet Estimate Decreased (ADEQUATE) Sodium Level 144 mmol/L (136-145) Potassium Level 4.4 mmol/L (3.5-5.1) Chloride Level 107 mmol/L (98-107) Carbon Dioxide Level 27 mmol/L (21-32) Anion Gap 10 (6-14) Blood Urea Nitrogen 19 mg/dL (8-26) Creatinine 0.8 mg/dL (0.7-1.3) Estimated GFR (Cockcroft-Gault) 94.5 BUN/Creatinine Ratio 24 (6-20) Glucose Level 142 mg/dL (70-99) Calcium Level 7.9 mg/dL (8.5-10.1) Total Bilirubin 0.3 mg/dL (0.2-1.0) Aspartate Amino Transf (AST/SGOT) 36 U/L (15-37) Alanine Aminotransferase (ALT/SGPT) 71 U/L (16-63) Alkaline Phosphatase 78 U/L (46-116) Total Protein 6.2 g/dL (6.4-8.2) Albumin 2.7 g/dL (3.4-5.0) Albumin/Globulin Ratio 0.8 (1.0-1.7) Microbiology 08/26/18 Blood Culture - Preliminary, Resulted NO GROWTH AFTER 1 DAY Medications Current Medications Sodium Chloride 500 ml @ 500 mls/hr 1X ONCE IV Last administered on 08/25/18 21:10; Start 08/25/18 at 20:00; Stop 08/25/18 at 20:59; Status DC Cefepime HCl (Maxipime) 2 gm Q8HRS IVP Last administered on 08/28/18at 05:42; Start 08/26/18 at 06:00; Stop 08/28/18 at 09:58; Status DC Vancomycin HCl (Vanco Per Pharmacy) 1 each PRN DAILY PRN MC SEE COMMENTS; Start 08/25/18 at 22:45; Stop 08/25/18 at 23:22; Status DC Cefepime HCl (Maxipime) 2 gm ONCE ONCE IVP Last administered on 08/25/18at 23:07 ; Start 08/25/18 at 23:00; Stop 08/25/18 at 23:01; Status DC Vancomycin HCl 2 gm/Sodium Chloride 500 ml @ 250 mls/hr 1X ONCE IV Last administered on 08/25/18at 23:00; Start 08/25/18 at 23:00; Stop 08/26/18 at 00:59; Status DC Sodium Chloride 1,000 ml @ 125 mls/hr Q8H IV Last administered on 08/26/18at 15: 00; Start 08/25/18 at 23:00; Stop 08/26/18 at 22:59; Status DC Acetaminophen (Tylenol) 650 mg PRN Q6HRS PRN PO FEVER > 100.5'F Last administered on 08/28/18at 10:56; Start 08/25/18 at 23:00 Dronabinol (Marinol) 2.5 mg DAILY PO Last administered on 08/28/18 09:59; Start 08/26/18 at 09:00 Furosemide (Lasix) 20 mg DAILY PO Last administered on 08/28/18 10:01; Start 08/26/18 at 09:00 Guaifenesin (Mucinex) 600 mg BID PO Last administered on 08/28/18 10:01; Start 08/26/18 at 09:00 Isosorbide Mononitrate (Imdur) 15 mg DAILY PO Last administered on 08/28/18 10 :00; Start 08/26/18 at 09:00 Non-Formulary Medication (Fluticasone/ Salmeterol (Advair 500-50 Diskus)) 1 puff BID IH ; Start 08/26/18 at 09:00; Status UNV Gabapentin (Neurontin) 600 mg TID PO Last administered on 08/28/18 09:59; Start 08/26/18 at 09:00 Budesonide (Pulmicort) 0.5 mg RTBID NEB Last administered on 08/28/18 07:51; Start 08/26/18 at 08:00 Albuterol Sulfate (Ventolin Neb Soln) 2.5 mg RTQID NEB Last administered on 07:51; Start 08/26/18 at 08:00 Diphenhydramine HCl (Benadryl) 25 mg PRN Q6HRS PRN PO INSOMNIA; Start 08/26/18 at 01:15; Stop 08/26/18 at 01:22; Status DC Diphenhydramine HCl (Benadryl) 25 mg PRN QHS PRN PO INSOMNIA, MAY REPEAT X1 Last administered on 08/28/18 10:56; Start 08/26/18 at 01:30 Fluconazole (Diflucan) 100 mg DAILY PO Last administered on 08/27/18 08:47; Start 08/26/18 at 14:00; Stop 08/27/18 at 12:15; Status DC Acyclovir (Zovirax) 400 mg BID PO Last administered on 08/27/18 08:47; Start 08/26/18 at 21:00; Stop 08/27/18 at 12:15; Status DC Ketorolac Tromethamine (Toradol 30mg Vial) 30 mg 1X ONCE IV Last administered on 08/26/18 15:48; Start 08/26/18 at 15:45; Stop 08/26/18 at 15:46; Status DC Diphenhydramine HCl (Benadryl) 25 mg 1X ONCE IVP Last administered on 15:48; Start 08/26/18 at 15:45; Stop 08/26/18 at 15:46; Status DC Methylprednisolone Sodium Succinate (SOLU-Medrol 125MG VIAL) 125 mg 1X ONCE IV Last administered on 3/9/19at 15:48; Start 08/26/18 at 15:45; Stop 08/26/18 at 15:46; Status DC Sodium Chloride 1,000 ml @ 1,000 mls/hr 1X ONCE IV Last administered on at 16:27; Start 08/26/18 at 16:30; Stop 08/26/18 at 17:29; Status DC Acyclovir (Zovirax) 800 mg BID PO Last administered on 08/28/18at 09:59; Start 08/27/18 at 21:00 Fluconazole (Diflucan) 400 mg DAILY PO ; Start 08/28/18 at 09:00; Stop 08/28/18 at 09:58; Status DC Acetaminophen/ Hydrocodone Bitart (Lortab 5/325) 1 tab PRN Q4HRS PRN PO MILD TO MODERATE PAIN Last administered on 08/27/18at 20:52; Start 08/27/18 at 20:15 Acetaminophen/ Hydrocodone Bitart (Lortab 5/325) 2 tab PRN Q4HRS PRN PO SEVERE PAIN; Start 08/27/18 at 20:15 Ondansetron HCl (Zofran) 4 mg PRN Q6HRS PRN IV NAUSEA/VOMITING Last administered on 08/28/18at 09:56; Start 08/28/18 at 09:00 Vancomycin HCl (Vanco Per Pharmacy) 1 each PRN DAILY PRN [facility] SEE COMMENTS; Start 08/28/18 at 09:45 Micafungin Sodium 100 mg/Dextrose 100 ml @ 100 mls/hr Q24H IV ; Start 08/28/18 at 11:00 Meropenem 1 gm/ Sodium Chloride 100 ml @ 200 mls/hr Q8HRS IV ; Start 08/28/18 at 11:00 Doxycycline Hyclate (Vibra-Tab) 100 mg BID PO ; Start 08/28/18 at 11:00 Active Scripts Active Reported Isosorbide Mononitrate Er (Isosorbide Mononitrate) 30 Mg Tab.er.24h 0.5 Tab PO DAILY Mucinex (Guaifenesin) 600 Mg Tablet.er 1 Tab PO BID Gabapentin 600 Mg Tablet 600 Mg PO TID Lasix (Furosemide) 20 Mg Tablet 1 Tab PO DAILY Advair 500-50 Diskus (Fluticasone/Salmeterol) 1 Each Disk.w.dev 1 Puff IH BID Marinol (Dronabinol) 2.5 Mg Capsule 2.5 Mg PO Doxycycline Hyclate 100 Mg Tablet.dr 1 Tab PO BID Vitals/I & O Vital Sign - Last 24 Hours 08/27/18 08/27/18 08/27/18 08/27/18 11:48 14:12 19:00 19:30 Temp 98.1 99.1 98.1 99.1 Pulse 90 95 Resp 20 20 B/P (MAP) 124/58 (80) 137/63 (87) Pulse Ox 91 97 96 O2 Delivery Room Air Nasal Cannula Nasal Cannula Nasal Cannula O2 Flow Rate 2.0 2.0 1.0 08/27/18 08/27/18 08/27/18 08/28/18 19:50 20:52 22:45 00:22 Temp 100.1 99.0 100.1 99.0 Pulse 98 Resp 20 22 B/P (MAP) 113/53 (73) Pulse Ox 96 92 O2 Delivery Nasal Cannula Nasal Cannula Nasal Cannula O2 Flow Rate 1.0 1.0 2.0 08/28/18 08/28/18 08/28/18 08/28/18 03:05 07:39 07:52 10:00 Temp 98.8 99.3 98.8 99.3 Pulse 87 111 111 Resp 22 20 B/P (MAP) 105/49 (67) 188/81 (116) 188/81 Pulse Ox 92 96 95 O2 Delivery Nasal Cannula Nasal Cannula Nasal Cannula O2 Flow Rate 2.0 2.0 1.0 08/28/18 08/28/18 10:43 10:54 Temp 101.5 101.0 101.5 101.0 Pulse 113 102 Resp 20 20 B/P (MAP) 179/78 (111) 179/78 Pulse Ox 92 O2 Delivery Nasal Cannula O2 Flow Rate 2.0 Intake and Output 08/27/18 08/27/18 08/28/18 14:59 22:59 06:59 Intake Total 700 ml 900 ml 200 ml Output Total 325 ml 200 ml 300 ml Balance 375 ml 700 ml -100 ml CHRISTO LOPEZ MD Aug 28, 2018 11:06
--- NOTE | 2018-08-28 11:51 | NUR ---
SS following up with discharge planning. contacted SS and gave bed assignment of [id number] and report # [phone]. SS contacted [facility] and scheduled transport for 1300 to . Pt's RN notified and packet placed on chart.
[2018-08-28] MEDS ORDERED: VANCOMYCIN 1.25 GM in IV NORMAL SALINE 250ML 250 ML IV SCH (13:00)
--- NOTE | 2018-08-28 13:15 | DISCH ---
DISCHARGE INSTRUCTIONS Condition on Discharge Condition on Discharge: Critical Activity After Discharge Activity Instructions for Disc: Bedrest today Bathing Instructions: Shower-keep dressing dry Lifting Instructions after Dis: No heavy lifting Driving Instructions after Dis: Do not drive today Weight Bearing Status after Di: As tolerated Diet after Discharge Diet after Discharge: Regular Diet Texture: Regular Liquid Texture: Thin Liquid Wound Incision Care Wound/Incision Care: Keep wound/cast CDI Treatment/Equipment after DC Adaptive Equipment Issued: None CHRISTO LOPEZ MD Aug 28, 2018 13:15
--- NOTE | 2018-08-28 13:15 | PDOC3 ---
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 Thrombocytopenia History of AML History of Raynauds Depression? 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 He has not had chemotherapy in 3 months We are following CBCs Pt is resting comfortably in bed, mild distress Discussed with RN and family at bedside He had a blood transfusion reaction yesterday, RR called D/c Cefepime Add meropenem with Ceftin exposure Add Vanc Doxy for atypical Change Fluconazole to Micafungin F/u cults TRANSFER TO [facility] today TRANSFUSSED 1 UNIT PRBC'S NOW DNR STATUS AGREED TODAY Vitals Vitals Vital Signs Date Time Temp Pulse Resp B/P (MAP) Pulse Ox O2 Delivery O2 Flow Rate FiO2 08/28/18 10:54 101.0 102 20 179/78 101.0 08/28/18 10:43 92 Nasal Cannula 2.0 Physical Exam General: Alert, Oriented X3 Heart: Normal S1, Normal S2 Lungs: Clear Abdomen: Normal bowel sounds, Soft, No tenderness Extremities: No clubbing, No cyanosis Skin: No rashes Labs LABS No comparison available. Clinical data indication: Fever. FINDINGS: Single upright portable exam performed. Heart and mediastinal contours are within normal levels. Right-sided port in place. Lung volumes are low, limiting evaluation. There is some prominent perihilar linear markings. No consolidation or pleural effusion. No pneumothorax. IMPRESSION: 1. No evidence of focal pneumonia. 2. Prominent perihilar linear markings could be related to acute or chronic bronchial inflammatory process or atelectasis. Electronically signed by: Gokul Mondragon MD (08/26/2018 1:26 AM) Brief Hospital Course Mr. Yates is a 72 old [sex] who presented with [ aml relapse acute] CONDITION AT DISCHARGE: Comment (TRANSFER TO [facility] TODAY) Discharge Medications Current Medications Sodium Chloride 500 ml @ 500 mls/hr 1X ONCE IV Last administered on 08/25/18 21:10; Start 08/25/18 at 20:00; Stop 08/25/18 at 20:59; Status DC Cefepime HCl (Maxipime) 2 gm Q8HRS IVP Last administered on 08/28/18 05:42; Start 08/26/18 at 06:00; Stop 08/28/18 at 09:58; Status DC Vancomycin HCl (Vanco Per Pharmacy) 1 each PRN DAILY PRN MC SEE COMMENTS; Start 08/25/18 at 22:45; Stop 08/25/18 at 23:22; Status DC Cefepime HCl (Maxipime) 2 gm ONCE ONCE IVP Last administered on 08/25/18 23:07 ; Start 08/25/18 at 23:00; Stop 08/25/18 at 23:01; Status DC Vancomycin HCl 2 gm/Sodium Chloride 500 ml @ 250 mls/hr 1X ONCE IV Last administered on 08/25/18 23:00; Start 08/25/18 at 23:00; Stop 08/26/18 at 00:59; Status DC Sodium Chloride 1,000 ml @ 125 mls/hr Q8H IV Last administered on 08/26/18 15: 00; Start 08/25/18 at 23:00; Stop 08/26/18 at 22:59; Status DC Acetaminophen (Tylenol) 650 mg PRN Q6HRS PRN PO FEVER > 100.5'F Last administered on 08/28/18 10:56; Start 08/25/18 at 23:00 Dronabinol (Marinol) 2.5 mg DAILY PO Last administered on 08/28/18 09:59; Start 08/26/18 at 09:00 Furosemide (Lasix) 20 mg DAILY PO Last administered on 08/28/18 10:01; Start 08/26/18 at 09:00 Guaifenesin (Mucinex) 600 mg BID PO Last administered on 08/28/18 10:01; Start 08/26/18 at 09:00 Isosorbide Mononitrate (Imdur) 15 mg DAILY PO Last administered on 08/28/18at 10 :00; Start 08/26/18 at 09:00 Non-Formulary Medication (Fluticasone/ Salmeterol (Advair 500-50 Diskus)) 1 puff BID IH ; Start 08/26/18 at 09:00; Status UNV Gabapentin (Neurontin) 600 mg TID PO Last administered on 08/28/18 09:59; Start 08/26/18 at 09:00 Budesonide (Pulmicort) 0.5 mg RTBID NEB Last administered on 08/28/18 07:51; Start 08/26/18 at 08:00 Albuterol Sulfate (Ventolin Neb Soln) 2.5 mg RTQID NEB Last administered on 12:08; Start 08/26/18 at 08:00 Diphenhydramine HCl (Benadryl) 25 mg PRN Q6HRS PRN PO INSOMNIA; Start 08/26/18 at 01:15; Stop 08/26/18 at 01:22; Status DC Diphenhydramine HCl (Benadryl) 25 mg PRN QHS PRN PO INSOMNIA, MAY REPEAT X1 Last administered on 08/28/18at 10:56; Start 08/26/18 at 01:30 Fluconazole (Diflucan) 100 mg DAILY PO Last administered on 08/27/18 08:47; Start 08/26/18 at 14:00; Stop 08/27/18 at 12:15; Status DC Acyclovir (Zovirax) 400 mg BID PO Last administered on 08/27/18at 08:47; Start 08/26/18 at 21:00; Stop 08/27/18 at 12:15; Status DC Ketorolac Tromethamine (Toradol 30mg Vial) 30 mg 1X ONCE IV Last administered on 08/26/18at 15:48; Start 08/26/18 at 15:45; Stop 08/26/18 at 15:46; Status DC Diphenhydramine HCl (Benadryl) 25 mg 1X ONCE IVP Last administered on at 15:48; Start 08/26/18 at 15:45; Stop 08/26/18 at 15:46; Status DC Methylprednisolone Sodium Succinate (SOLU-Medrol 125MG VIAL) 125 mg 1X ONCE IV Last administered on 08/26/18at 15:48; Start 08/26/18 at 15:45; Stop 08/26/18 at 15:46; Status DC Sodium Chloride 1,000 ml @ 1,000 mls/hr 1X ONCE IV Last administered on at 16:27; Start 08/26/18 at 16:30; Stop 08/26/18 at 17:29; Status DC Acyclovir (Zovirax) 800 mg BID PO Last administered on 08/28/18at 09:59; Start 08/27/18 at 21:00 Fluconazole (Diflucan) 400 mg DAILY PO ; Start 08/28/18 at 09:00; Stop 08/28/18 at 09:58; Status DC Acetaminophen/ Hydrocodone Bitart (Lortab 5/325) 1 tab PRN Q4HRS PRN PO MILD TO MODERATE PAIN Last administered on 08/27/18at 20:52; Start 08/27/18 at 20:15 Acetaminophen/ Hydrocodone Bitart (Lortab 5/325) 2 tab PRN Q4HRS PRN PO SEVERE PAIN; Start 08/27/18 at 20:15 Ondansetron HCl (Zofran) 4 mg PRN Q6HRS PRN IV NAUSEA/VOMITING Last administered on 08/28/18at 09:56; Start 08/28/18 at 09:00 Vancomycin HCl (Vanco Per Pharmacy) 1 each PRN DAILY PRN MC SEE COMMENTS Last administered on 08/28/18at 12:34; Start 08/28/18 at 09:45 Micafungin Sodium 100 mg/Dextrose 100 ml @ 100 mls/hr Q24H IV ; Start 08/28/18 at 11:00 Meropenem 1 gm/ Sodium Chloride 100 ml @ 200 mls/hr Q8HRS IV ; Start 08/28/18 at 11:00 Doxycycline Hyclate (Vibra-Tab) 100 mg BID PO ; Start 08/28/18 at 11:00 Vancomycin HCl 1.25 gm/Sodium Chloride 250 ml @ 167 mls/hr Q18H IV ; Start 05/08 at 13:00 Vancomycin HCl (Vancomycin Trough Level) 1 each 1X ONCE MC ; Start 08/30/18 at 00:30; Stop 08/30/18 at 00:31 Active Scripts Active Reported Isosorbide Mononitrate Er (Isosorbide Mononitrate) 30 Mg Tab.er.24h 0.5 Tab PO DAILY Mucinex (Guaifenesin) 600 Mg Tablet.er 1 Tab PO BID Gabapentin 600 Mg Tablet 600 Mg PO TID Lasix (Furosemide) 20 Mg Tablet 1 Tab PO DAILY Advair 500-50 Diskus (Fluticasone/Salmeterol) 1 Each Disk.w.dev 1 Puff IH BID Marinol (Dronabinol) 2.5 Mg Capsule 2.5 Mg PO Doxycycline Hyclate 100 Mg Tablet.dr 1 Tab PO BID Vital Signs Vital Signs Date Time Temp Pulse Resp B/P (MAP) Pulse Ox O2 Delivery O2 Flow Rate FiO2 08/28/18 12:20 102.7 112 20 134/60 102.7 08/28/18 12:08 94 Nasal Cannula 1.0 Labs Laboratory Tests Test 08/26/18 15:16 08/26/18 15:30 08/26/18 16:20 08/27/18 09:00 Glucose (Fingerstick) 116 mg/dL (70-99) Urine Collection Type Unknown Urine Color Yellow Urine Clarity Clear Urine pH 5.0 Urine Specific Bryant 1.015 Urine Protein Negative mg/dL (NEG-TRACE) Urine Glucose (UA) Negative mg/dL (NEG) Urine Ketones (Stick) Negative mg/dL (NEG) Urine Blood Negative (NEG) Urine Nitrite Negative (NEG) Urine Bilirubin Negative (NEG) Urine Urobilinogen Dipstick 0.2 mg/dL (0.2 mg/dL) Urine Leukocyte Esterase Negative (NEG) Urine RBC 0 /HPF (0-2) Urine WBC 0 /HPF (0-4) Urine Squamous Epithelial Cells None /LPF Urine Bacteria 0 /HPF (0-FEW) Urine Mucus Mod /LPF Lactic Acid Level 1.1 mmol/L (0.4-2.0) White Blood Count 1.4 x10^3/uL (4.0-11.0) Red Blood Count 2.51 x10^6/uL (4.30-5.70) Hemoglobin 7.3 g/dL (13.0-17.5) Hematocrit 21.7 % (39.0-53.0) Mean Corpuscular Volume 87 fL (79-100) Mean Corpuscular Hemoglobin 29 pg (25-35) Mean Corpuscular Hemoglobin Concent 34 g/dL (31-37) Red Cell Distribution Width 13.8 % (11.5-14.5) Platelet Count 23 x10^3/uL (140-400) Neutrophils (%) (Auto) 23 % (31-73) Lymphocytes (%) (Auto) 38 % (24-48) Monocytes (%) (Auto) 38 % (0-9) Eosinophils (%) (Auto) 0 % (0-3) Basophils (%) (Auto) 1 % (0-3) Neutrophils # (Auto) 0.3 x10^3uL (1.8-7.7) Lymphocytes # (Auto) 0.5 x10^3/uL (1.0-4.8) Monocytes # (Auto) 0.5 x10^3/uL (0.0-1.1) Eosinophils # (Auto) 0.0 x10^3/uL (0.0-0.7) Basophils # (Auto) 0.0 x10^3/uL (0.0-0.2) Test 08/28/18 06:45 White Blood Count 1.4 x10^3/uL (4.0-11.0) Red Blood Count 2.48 x10^6/uL (4.30-5.70) Hemoglobin 7.3 g/dL (13.0-17.5) Hematocrit 21.7 % (39.0-53.0) Mean Corpuscular Volume 88 fL (79-100) Mean Corpuscular Hemoglobin 29 pg (25-35) Mean Corpuscular Hemoglobin Concent 34 g/dL (31-37) Red Cell Distribution Width 13.7 % (11.5-14.5) Platelet Count 15 x10^3/uL (140-400) Neutrophils (%) (Auto) 26 % (31-73) Lymphocytes (%) (Auto) 30 % (24-48) Monocytes (%) (Auto) 44 % (0-9) Eosinophils (%) (Auto) 0 % (0-3) Basophils (%) (Auto) 0 % (0-3) Neutrophils # (Auto) 0.4 x10^3uL (1.8-7.7) Lymphocytes # (Auto) 0.4 x10^3/uL (1.0-4.8) Monocytes # (Auto) 0.6 x10^3/uL (0.0-1.1) Eosinophils # (Auto) 0.0 x10^3/uL (0.0-0.7) Basophils # (Auto) 0.0 x10^3/uL (0.0-0.2) Segmented Neutrophils % 24 % (35-66) Band Neutrophils % 18 % (0-9) Lymphocytes % 18 % (24-48) Monocytes % 2 % (0-10) Metamyelocytes % 2 % (0-0) Blast Cells % (Manual) 36 % (0-0) Platelet Estimate Decreased (ADEQUATE) Sodium Level 144 mmol/L (136-145) Potassium Level 4.4 mmol/L (3.5-5.1) Chloride Level 107 mmol/L (98-107) Carbon Dioxide Level 27 mmol/L (21-32) Anion Gap 10 (6-14) Blood Urea Nitrogen 19 mg/dL (8-26) Creatinine 0.8 mg/dL (0.7-1.3) Estimated GFR (Cockcroft-Gault) 94.5 BUN/Creatinine Ratio 24 (6-20) Glucose Level 142 mg/dL (70-99) Calcium Level 7.9 mg/dL (8.5-10.1) Total Bilirubin 0.3 mg/dL (0.2-1.0) Aspartate Amino Transf (AST/SGOT) 36 U/L (15-37) Alanine Aminotransferase (ALT/SGPT) 71 U/L (16-63) Alkaline Phosphatase 78 U/L (46-116) Total Protein 6.2 g/dL (6.4-8.2) Albumin 2.7 g/dL (3.4-5.0) Albumin/Globulin Ratio 0.8 (1.0-1.7) Laboratory Tests Test 08/28/18 06:45 White Blood Count 1.4 x10^3/uL (4.0-11.0) Red Blood Count 2.48 x10^6/uL (4.30-5.70) Hemoglobin 7.3 g/dL (13.0-17.5) Hematocrit 21.7 % (39.0-53.0) Mean Corpuscular Volume 88 fL (79-100) Mean Corpuscular Hemoglobin 29 pg (25-35) Mean Corpuscular Hemoglobin Concent 34 g/dL (31-37) Red Cell Distribution Width 13.7 % (11.5-14.5) Platelet Count 15 x10^3/uL (140-400) Neutrophils (%) (Auto) 26 % (31-73) Lymphocytes (%) (Auto) 30 % (24-48) Monocytes (%) (Auto) 44 % (0-9) Eosinophils (%) (Auto) 0 % (0-3) Basophils (%) (Auto) 0 % (0-3) Neutrophils # (Auto) 0.4 x10^3uL (1.8-7.7) Lymphocytes # (Auto) 0.4 x10^3/uL (1.0-4.8) Monocytes # (Auto) 0.6 x10^3/uL (0.0-1.1) Eosinophils # (Auto) 0.0 x10^3/uL (0.0-0.7) Basophils # (Auto) 0.0 x10^3/uL (0.0-0.2) Segmented Neutrophils % 24 % (35-66) Band Neutrophils % 18 % (0-9) Lymphocytes % 18 % (24-48) Monocytes % 2 % (0-10) Metamyelocytes % 2 % (0-0) Blast Cells % (Manual) 36 % (0-0) Platelet Estimate Decreased (ADEQUATE) Sodium Level 144 mmol/L (136-145) Potassium Level 4.4 mmol/L (3.5-5.1) Chloride Level 107 mmol/L (98-107) Carbon Dioxide Level 27 mmol/L (21-32) Anion Gap 10 (6-14) Blood Urea Nitrogen 19 mg/dL (8-26) Creatinine 0.8 mg/dL (0.7-1.3) Estimated GFR (Cockcroft-Gault) 94.5 BUN/Creatinine Ratio 24 (6-20) Glucose Level 142 mg/dL (70-99) Calcium Level 7.9 mg/dL (8.5-10.1) Total Bilirubin 0.3 mg/dL (0.2-1.0) Aspartate Amino Transf (AST/SGOT) 36 U/L (15-37) Alanine Aminotransferase (ALT/SGPT) 71 U/L (16-63) Alkaline Phosphatase 78 U/L (46-116) Total Protein 6.2 g/dL (6.4-8.2) Albumin 2.7 g/dL (3.4-5.0) Albumin/Globulin Ratio 0.8 (1.0-1.7) Allergies Allergies Coded Allergies Type Severity Reaction Last Updated Verified levofloxacin Allergy Intermediate Rash 08/25/18 Yes Patient Instructions D/C PLANNING 40 MIN CHRISTO LOPEZ MD Aug 28, 2018 13:15
[2018-08-28] MEDS ORDERED: HYDR-2761 PO (13:18)
[2018-08-28] MEDS ORDERED: VANC1VIA3 MC (13:18)
[2018-08-28] MEDS ORDERED: ACYC200C PO (13:18)
--- NOTE | 2018-08-28 14:36 | NUR ---
Discharge Note: CONNER BARNEY [address] Discharge instructions and discharge home medications reviewed with Patient and a copy given. All questions have been answered and understanding verbalized. Patient discharged to [] with[aki]via [Ambulance ]
--- NOTE | 2018-08-29 04:33 | CONS ---
DATE OF CONSULTATION: 08/28/2018 INFECTIOUS DISEASE CONSULTATION The patient's room is 250. REQUESTING PHYSICIAN: Dr. Santacruz. REASON FOR CONSULTATION: Sepsis. HISTORY OF PRESENT ILLNESS: The patient is a pleasant 72-year-old gentleman with a known history of AML. According to reviewing the previous records, he underwent bone marrow biopsy on 08/23/2017 and additionally on 01/16/2018. He has a known history of AML, but has not received any medications for several months. He does state that he has been on Ceftin, he states since October, because of a low immune system. Several days ago, he started to feel more fatigued and took his temperature and found to have a temperature of up to 101. He presented to [facility] Room on 08/25/2018. He had taken some Tylenol at that time. On arrival, he had a temperature of 100.2. He was noted to have a platelet count of 5. He had a white blood cell count of 1 on 08/14/2018. White blood cell count on 08/25/2018 was 2.1, hemoglobin was 7.1, platelets were 31. His blood count dropped down to 6.8. He has since been transfused. He also has received some platelets. He had been given a dose of vancomycin and placed on cefepime. Since then, started on prophylactic acyclovir and fluconazole. He had a temperature last evening of 100.1. Currently, the patient is sitting in a chair. He is fatigued. He has no gross headache, no gross shortness of air. He has a little bit of a cough, nonproductive. He feels constipated. No problems passing his urine. Denies any falls. No vomiting. He has chronic changes in the skin to his lower extremities as a part of a reaction to LEVOFLOXACIN. PAST MEDICAL HISTORY: Positive for the AML, osteoarthritis, peripheral vascular disease, hypertension, hyperlipidemia and peripheral neuropathy. PAST SURGICAL HISTORY: Positive for appendectomy, bone marrow biopsies and a right-sided chest Port-A-Cath placement. REVIEW OF SYSTEMS: Otherwise negative. ALLERGIES: LISTED TO LEVOFLOXACIN, WHICH CAUSES SEVERE SKIN RASH LEAVING HIS LOWER EXTREMITIES DISCOLORED. SOCIAL HISTORY: He is . He is a smoker. He has a dog at home. FAMILY HISTORY: Positive for lung cancer. CURRENT MEDICATIONS: Included cefepime, acyclovir, fluconazole, albuterol, Pulmicort, Marinol, Lasix, Neurontin, Mucinex, Lortab, Imdur. PHYSICAL EXAMINATION: VITAL SIGNS: Most recent temperature 100.1 last evening, currently 99.3; pulse 111, respirations 20, blood pressure 188/81, satting 95% on 1 liter. CONSTITUTIONAL: He is cooperative. He is in no acute distress. He is sitting in a chair, but he does look fatigued and tired. HEENT: Pupils are equal and reactive. Normal conjunctivae. Oral cavity, pharynx dry, has dentures. NECK: Supple, no JVD. LUNGS: Decreased in the bases, some mild crackles. HEART: S1, S2. ABDOMEN: Mildly distended with decreased bowel sounds. EXTREMITIES: Without clubbing or cyanosis. He has chronic venous stasis changes of his lower extremities. His toes also has some tinea and onychomycosis. He has some petechiae on some of his toes. SKIN: Otherwise warm to touch without signs of rash. He has a Port-A-Cath in his right chest area without signs of any complications. NEUROLOGIC: He answers questions, but does seem may be touch confused. Affect was appropriate. LABORATORY DATA: White count 1.4, hemoglobin 7.3, platelets of 26, neutrophils 66, lymphs were 30, monos were 44. He had 65 blasts on 08/25/2018. Creatinine 0.8, glucose 142, AST 36, ALT 71, alkaline phosphatase 71. Urinalysis not consistent with urinary tract infection. Influenza screen was negative. Chest x-ray on 08/25/2018, no evidence of pneumonia, prominent perihilar markings, acute or chronic bronchial inflammation process or atelectasis. IMPRESSION: 1. Fever, questionable secondary to infection versus blast crisis plus minus transfusion. 2. Pancytopenia, states he has been on Ceftin since October 2017. 3. Acute myeloid leukemia with blast crisis. 4. LEVOFLOXACIN allergy, severe rash. 5. Tinea and onychomycoses. 6. Constipation. 7. Petechiae of toes versus emboli. No other stigmata seen. RECOMMENDATIONS: For now, we will discontinue the cefepime as he has been on Ceftin, he states for close to a year. We will add meropenem to cover potential resistance. I will add back vancomycin to also cover atypicals with the doxycycline. We will change his fluconazole to micafungin. We will follow up on cultures. Follow up on labs. Hold any further labs and/or microbiology evaluation as he is supposed to be transferred to today. This was discussed with nursing and initially discussed with Dr. Santacruz. Thank you for allowing me to participate in the patient's care. Should you have any questions, please do not hesitate to contact me. DINA SOLIS MD DR: VIRA/marcus JOB#: [id number] / [id number]
== END 2018-08-28 14:35 | disposition short-term general hospital (02) | DRG 835 ==
LOC: ER 19:44 → 6 SOUTH 22:49 → 2 SOUTH 08-26 16:39
PROVIDERS: ADMIT Internal Medicine; ATTEND Internal Medicine
PROC: 30233R1 Transfusion of Nonautologous Platelets into Peripheral Vein, Percutaneous Approach (ICD-10-PCS; principal; 2018-08-26)
PROC: 30233N1 Transfusion of Nonautologous Red Blood Cells into Peripheral Vein, Percutaneous Approach (ICD-10-PCS; 2018-08-26)
DX: C92.02 Acute myeloblastic leukemia, in relapse (principal); D61.818 Other pancytopenia; B35.1 Tinea unguium; E78.5 Hyperlipidemia, unspecified; F17.200 Nicotine dependence, unspecified, uncomplicated; I10 Essential (primary) hypertension; Z66 Do not resuscitate; I95.9 Hypotension, unspecified; I73.00 Raynaud's syndrome without gangrene; R23.3 Spontaneous ecchymoses; K59.00 Constipation, unspecified; G62.9 Polyneuropathy, unspecified; M19.90 Unspecified osteoarthritis, unspecified site; R50.81 Fever presenting with conditions classified elsewhere; T36.8X5A Adverse effect of other systemic antibiotics, initial encounter; Z80.1 Family history of malignant neoplasm of trachea, bronchus and lung; Z90.49 Acquired absence of other specified parts of digestive tract; Z88.8 Allergy status to other drugs, medicaments and biological substances; Z92.21 Personal history of antineoplastic chemotherapy
CPT/HCPCS: 36415; 71045; 80048; 80053; 81001; 82962; 83605; 84145; 84484; 85007; 85025; 85049; 85610; 86078; 86850; 86900; 86901; 86920; 87040; 87804; 93005; 94640; 94760; 96365; 96375; 99406; J0692; J1200; J1885; J2405; J2930; J3370; J7030; J7040; J7613; J7626; P9016; P9037; Q0163; Q0167; 99285-25